=== PATIENT | female | born 1990 | race Caucasian/White ===

== ENCOUNTER 2023-09-21 08:08 | Outpatient (CLI) | payer OTHER, SELFPAY ==
--- OUTSIDE RECORDS SUMMARY | 2023-09-21 08:10 | XMS_ITS | Continuity of Care Document ---
Author Name [facility] Organization [facility] Care Team Providers Care Domain Architect Name Role Phone [facility] Unavailable Unavailable Problems Combined list of problems from Department of Defense and Veterans Affairs facilities. It does not include entries that were removed or entered in error. Problem Status Onset Date Problem Type Date of Resolution Comments Source visit for: contraceptive surveillance Inactive 07/12/[address] [facility] Guidance: Concerns About Unsafe Sexual Practices Inactive 07/12/2012 Condition DoD Need For Vaccination Against Influenza Inactive Condition [facility] visit for: screening exam pulmonary tuberculosis Inactive Condition [facility] visit for: screening exam viral disease Inactive Condition [facility] Test Inactive Condition [facility] visit for: services physical Active Condition [facility] visit for: ears / hearing exam Active Condition [facility] assessment of patient condition work-related Active Condition [facility] Medications Combined list of outpatient medications from Department of aihuishou and Veterans Affairs facilities.Medications provided include 1) outpatient medications from the last 15 months, and 2) patient-reported medications. Medication Details Route Status Patient Instructions Prescription Expires Prescription Number Last Dispense Date Ordering Provider Order Date Source cephalexin 500 mg oral capsule 0 total refill(s ) Ordered No Facilit y Access clindamycin 2% vaginal cream clindamy wil 2% vaginal cream Start Date: 04/29/21 Status: Ordered Ordered No Facilit y Access metroNIDAZO LE 500 mg oral tablet 0 total refill(s ) Ordered No Facilit y Access Allergies, Adverse Reactions, Alerts Combined list of allergies from Department of Defense and Veterans Affairs facilities. It does not include entries that were removed or entered in error. Substance Category Reaction Severity Reaction type Status Date Reported Comments Source No Known Allergies Drug allergy (disorder) active 05/09/2012 [facility] Immunizations Combined list of available immunizations from the Department of Defense and Veterans Affairs facilities. Immunization Series Date Given Administered By Site Reaction Lot Number CVX Code Drug Funeral Director'S Assistant Status Comments Source SARS-COV-2 (COVID-19) vaccine, vector non-replicati ng, recombinant spike protein-Ad26, preservative free, 0.5 mL 1 2021 [id number] Unknown (UNK) comple t ed SARS-COV- 2 (COVID-19 ) vaccine, vector non-repli cating, recombina nt spike protein-A d26, preservat jennifer free, 0.5 mL DoD tetanus-dipht h toxoids (Td) adult/adol 2020 Right Arm [id number] GlaxoSmithKli ne complet ed tetanus-d iphth toxoids (Td) adult/ado l 11/13/20 Given Ambulat ory Pharmac y tetanus and diphtheria toxoids, adsorbed, preservative free, for adult use (2 Lf of tetanus toxoid and 2 Lf of diphtheria toxoid) 1 2020 MARIO MCCORMACK T [id number] [facility] ([facility] complet ed tetanus and diphtheri a toxoids, adsorbed, preservat jennifer free, for adult use (2 Lf of tetanus toxoid and 2 Lf of diphtheri a toxoid) DoD influenza, injectable, quadrivalent- pf 2018 [id number] 150 Seqirus complet ed influenza , injectabl e, quadrival ent-pf 06/23/19 Given Ambulat ory Pharmac y Influenza, injectable, quadrivalent, preservative free 1 2018 [id number] 150 Seqirus (SEQ) complet ed Influenza , injectabl e, quadrival ent, preservat jennifer free DoD influenza, seasonal, injectable-pf 2016 [id number] 140 GlaxoSmithKli ne complet ed influenza , seasonal, injectabl e-pf 05/10/17 Given Ambulat ory Pharmac y Influenza, seasonal, injectable, preservative free 1 2016 [id number] [facility] Influenza , seasonal, injectabl e, preservat jennifer free DoD influenza, seasonal, injectable 2015 [id number] 141 Unknown complet ed influenza , seasonal, injectabl e 06/27/16 Given Ambulat ory Pharmac y Influenza, seasonal, injectable 1 2015 [id number] 141 Unknown (UNK) comple t ed Influenza , seasonal, injectabl e DoD influenza, injectable, quadrivalent- pf 2014 [id number] 150 GlaxoSmithKli ne complet ed influenza , injectabl e, quadrival ent-pf 06/29/15 Given Ambulat ory Pharmac y Influenza, injectable, quadrivalent, preservative free 1 2014 [id number] 150 SmithKline (SKB) complet ed Influenza , injectabl e, quadrival ent, preservat jennifer free DoD measles/mumps /rubella virus vaccine 2014 [id number] 03 Merck & Company Inc complet ed measles/m umps/rube lla virus vaccine 02/18/15 Given Ambulat ory Pharmac y measles, mumps and rubella virus vaccine 2 2014 [id number] 03 WISHCLOUDS (MSD) complet ed measles, mumps and rubella virus vaccine DoD Influenza, injectable, MDCK-pf 2013 [id number] 153 Novartis Pharmaceutica ls complet ed Influenza , injectabl e, MDCK-pf 04/26/14 Given Ambulat ory Pharmac y Influenza, injectable, Madin Cumberland Canine Kidney, preservative free 1 2013 [id number] 153 Novartis Admittortica Kuldat Ha. (NOV) complet ed Influenza , injectabl e, Madin Kassie Canine Kidney, preservat jennifer free DoD Influenza, injectable, MDCK-pf 2012 [id number] 153 CSL Behring complet ed Influenza , injectabl e, MDCK-pf 04/22/13 Given Ambulat ory Pharmac y Influenza, injectable, Madin Cumberland Canine Kidney, preservative free 1 2012 [id number] 153 [employer] [employer] (CS) complet ed Influenza , injectabl e, Madin Cumberland Canine Kidney, preservat jennifer free DoD tuberculin purified protein derivative 2011 [id number] 96 sanofi pasteur complet ed tuberculi n purified protein derivativ e 05/09/12 Given Ambulat ory Pharmac y influenza virus vaccine, live 2011 [id number] 111 [employer] Inc comple t ed influenza virus vaccine, live 05/09/12 Given Ambulat ory Pharmac y influenza virus vaccine, live, attenuated, for intranasal use 1 2011 [id number] 111 MedITopChalks[employer] Inc. (MED) complet ed influenza virus vaccine, live, attenuate d, for intranasa l use DoD hepatitis A-hepatitis B vaccine 2011 UNK 104 Unknown complet ed hepatitis A-hepatit is B vaccine 6/10/12 Given Ambulat ory Pharmac y hepatitis A and hepatitis B vaccine 3 2011 UNK 104 Unknown (UNK) comple t ed hepatitis A and hepatitis B vaccine DoD influenza, seasonal, injectable-pf 2010 [id number] 140 CSL Behring complet ed influenza , seasonal, injectabl e-pf 05/23/11 Given Ambulat ory Pharmac y Influenza, seasonal, injectable, preservative free 1 2010 [id number] 140 CS Kle[employer]ail[employer] Inc. (CSL) complet ed Influenza , seasonal, injectabl e, preservat jennifer free DoD hepatitis A-hepatitis B vaccine 2008 [id number] 0AA 104 GlaxoSmithKli ne complet ed hepatitis A-hepatit is B vaccine 02/01/09 Given Ambulat ory Pharmac y hepatitis A and hepatitis B vaccine 2 2008 [id number] 0AA 104 SmithKline (SKB) complet ed hepatitis A and hepatitis B vaccine DoD tuberculin purified protein derivative 2008 [id number] 96 sanofi pasteur complet ed tuberculi n purified protein derivativ e 12/28/08 Given Ambulat ory Pharmac y tetanus, diphtheria, acellular pertu is 2008 [id number] 115 GlaxoSmithKli ne complet ed tetanus, diphtheri a, acellular pertussis 12/28/08 Given Ambulat ory Pharmac y meningococcal A,C,Y,W-135 (MCV4P) 2008 [id number] 114 sanofi pasteur complet ed meningoco ccal A,C,Y,W-1 35 (MCV4P) 12/28/08 Given Ambulat ory Pharmac y hepatitis A-hepatitis B vaccine 2008 [id number] 0AA 104 GlaxoSmithKli ne complet ed hepatitis A-hepatit is B vaccine 12/28/08 Given Ambulat ory Pharmac y poliovirus vaccine, inactivated 2008 [id number] 10 sanofi pasteur complet ed polioviru s vaccine, inactivat ed 12/28/08 Given Ambulat ory Pharmac y measles/mumps /rubella virus vaccine 2008 [id number] 03 Merck & Company Inc complet ed measles/m umps/rube lla virus vaccine 12/28/08 Given Ambulat ory Pharmac y measles, mumps and rubella virus vaccine 1 2008 [id number] 03 Merck (MSD) complet ed measles, mumps and rubella virus vaccine DoD poliovirus vaccine, inactivated 1 2008 [id number] 10 Sanofi Pasteur (PMC) complet ed polioviru s vaccine, inactivat ed DoD varicella virus vaccine 1 2008 UNK 21 Unknown (UNK) Not Given varicella virus vaccine DoD hepatitis A and hepatitis B vaccine 1 2008 [id number] 0AA 104 SmithKline (SKB) complet ed hepatitis A and hepatitis B vaccine DoD meningococcal polysaccharid e (groups A, C, Y and W-135) diphtheria toxoid conjugate vaccine (MCV4P) 1 2008 [id number] 114 Sanofi Pasteur (PMC) complet ed meningoco ccal polysacch aride (groups A, C, Y and W-135) diphtheri a toxoid conjugate vaccine (MCV4P) DoD tetanus toxoid, reduced diphtheria toxoid, and acellular pertu is vaccine, adsorbed 1 2008 [id number] 115 SmithKline (SKB) complet ed tetanus toxoid, reduced diphtheri a toxoid, and acellular pertussis vaccine, adsorbed DoD Vital Signs Combined list of inpatient and outpatient Vital Signs from Department of Defense and Veterans Affairs, ranging from 12 months to all on record, depending upon the facility. Vital Sign Value Date Comments Source No data available for this section Ambulatory Pharmacy Encounters Combined list of: 1) Encounters from Department of Veterans Affairs facilities going back up to thelast 18 months. 2) Encounters from the Department of Defense facilities going back up to 280 months. Location Location Details Encounter Type Encounter Number Reason For Visit Attending Provider ADM Date DC Date Status Disposition Source [facility](IEP Hearing Conservat ion) OUTPATIENT [id number] DEREK CAMACHO 12/26 Released w/o Limitations [facility](I EP Hearing Conserv ation) [facility](IEP Optometry ) OUTPATIENT [id number] HALEY MURPHY 01/29 Released w/o Limitations [facility](I EP Optomet ry) [facility](TAMMI C IRR/SRP) OUTPATIENT [id number] Notes Entered by: JUAN J CHOI RA 09 May 2012 0839 ------- ------- ------- ------- -- LVL1/OB C ZULEMAEPI Mel 05/09 Released w/o Limitations [facility] IRR/SRP ) [facility] C Gynecolog y) OUTPATIENT [id number] [facility] 001-13 KIN NAVARRETE Eunice 07/12 Released w/o Limitations [facility] Gynecol ogy) [facility] OUTPATIENT [id number]: ST LI MAHER 06 Mar 2019 1453 ------- ------- ------- ------- -- EVELIN LOPEZ 03/06 [facility]ased w/o Limitations [facility] OUTPATIENT [id number] Notes Entered by: CARMEN CHAUDHARI 07 Mar 2019 1525 ------- ------- ------- ------- -- EVELIN LOPEZ 03/07 Released w/o Limitations [facility]) [facility] [place] De[facility]) OUTPATIENT [id number] Notes Entered by: Jameson MEDLEY November 0718 ------- ------- ------- ------- -- MOBKAMRYN YI 11/13 Released w/o Limitations [facility] [place]([facility] Deploym ent Clinic) [facility] [place]([facility] Hearing Program) OUTPATIENT [id number] Notes Entered by: BERTHA KENNEDY 08 Oct 2021 0720 ------- ------- ------- ------- -- CAROLINE TOTH 10/08 Released w/o Limitations [facility] [place](SR [facility] Hearing Program ) [facility] [place]([facility]) OUTPATIENT [id number] Notes Entered by: ANDRE LYN 08 Oct 2021 0718 ------- ------- ------- ------- -- EULA ESPITIA 10/08 Released w/o Limitations [facility] [place]([facility] P Deploym ent Clinic) [facility](SR[facility] Deploymen t Clinic) OUTPATIENT [id number] DILMAMARIKA KUMARPE 10/09 Released w/o Limitations [facility](SR P Deploym ent Clinic) [place], [place]([facility] [address] [place] [address]) TELE CONSULT [id number] Notes Entered by: PAT BERRY 29 Oct 2021 1039 ------- ------- ------- ------- -- [facility] Poly-Ph armacy 21.12 Cohort #5 JADADANYEL Homer 10/29 [place], [place]([address]) Procedures Combined list of: 1) Procedures from Department of Veterans Affairs facilities going back up to thelast 18 months, not all VA non-surgical procedures are included; 2) All procedures from the Department of Defense facilities. Procedure Procedure Type Code Date Perfomer Comments Soureunice e No data available for this section Ambulato ry Pharmacy Skin Test Anergy Tuberculin Intradermal Skin Test Anergy Tuberculin Intradermal [address] [facility] Immunization Administration By Injection, Each Additional Vaccine [facility] Influenza Virus Vaccine Intranasal Live Attenuated [facility] Immunization Administration By Injection, One Vaccine Immunization Administration By Injection, One Vaccine 00698 [facility] Visual Function Screening Visual Function Screening [address] [facility] Physician Supervised Group Educational Services DEREK CAMACHO Special Physician Services Analysis Of Computerized Data DEREK CAMACHO [facility]ometry [facility] Testing Audiometry Group Testing 79576 DEREK CAMACHO Ear mold/insert, not disposable, any type JANICEDEREK KOLB N [facility] Ear Protector Attenuation Measurements Ear Protector Attenuation Measurements [address] [facility] Threshold Audiogram (Pure Tone) Threshold Audiogram (Pure Tone) [address] [facility] Td Vaccine Preservative Free, Adsorbed Td Vaccine Preservative Free, Adsorbed 58625 KAMRYN ARANGO Td (adult), adsorbed; Series #: 1; 0.5 mL; IM; Right Arm; Mfg: [employer]; Lot: [id number]; VIS given (Jae: 11/08/2019). [facility] Immunization Administration By Injection, One Vaccine Immunization Administration By Injection, One Vaccine [address] [facility] Preventive Medicine Administration Of Health Risk Questionnaire Patient-Focused Preventive Medicine Administration Of Health Risk Questionnaire Patient-Focused [address] [facility] Psychometric Emotional / Behavioral A e ment Psychometric Emotional / Behavioral Assessment [address] [facility] Threshold Audiogram (Pure Tone) Automated Threshold Audiogram (Pure Tone) Automated [id number] CAROLINE SPARKS [facility] Nutrition cla es, non-physician provider, per se EVELIN Sheets [facility] ADMINISTRATION OF PATIENT-FOCUSED HEALTH RISK ASSESSMENT INSTRUMENT (EG, HEALTH HAZARD APPRAISAL) WITH SCORING AND DOCUMENTATION, PER STANDARDIZED INSTRUMENT [facility] PURE TONE AUDIOMETRY (THRESHOLD), AUTOMATED; AIR ONLY [facility] BRIEF EMOTIONAL/BEHAVIO RAL ASSESSMENT (EG, DEPRESSION INVENTORY, ATTENTION-DEFICIT /HYPERACTIVITY DISORDER [ADHD] SCALE), WITH SCORING AND DOCUMENTATION, PER STANDARDIZED INSTRUMENT [facility] SCREENING TEST OF VISUAL ACUITY, QUANTITATIVE, BILATERAL 021 [facility] NUTRITION CLASSES, NON-PHYSICIAN PROVIDER, PER SESSION 019 [facility] SKIN TEST; TUBERCULOSIS, INTRADERMAL 012 [facility] VIS FUNCT SCREEN,AUTOMAT/SE AL-AUTOMAT BILAT QUANT DETERM VISUAL ACUITY,OCULAR ALIGN,COLOR VISION,PSEUDOISOC HROMAT PLATES,& FIELD VIS (MAY INC ALL/SOME SCRN DETERM FOR CONTRAST SENSITIV,VIS UND GLARE) [facility] AUDIOMETRIC TESTING OF GROUPS [facility] Social History Combined list of available smoking, tobacco, and other social history from Department of Defense and Veterans Affairs facilities. Social History Type Response Date Comment Sour e This section is an empty social history section. DoD Assessment and Plan Combined list of future care activities from Department of Defense and Veterans Affairs facilities (e.g., assessment and plan notes, appointments, orders, and referrals). Additional future care activities may be listed in the Plan of Care section. Result Assessment and Plan Date Source Assessment and Plan No data available for this section 09/21/2023 Ambulatory Pharmacy Functional Status Combined list of recent functional and cognitive assessments recorded at Department of Defense and Veterans Affairs ([place] Functional Pratt Measurement (FIM) Scale: 1 = Total Assistance (Subject = 0% +), 2 = Maximal Assistance (Subject = 25% +), 3 = Moderate Assistance (Subject = 50% +), 4 = Minimal Assistance (Subject = 75% +), 5 = Supervision, 6 = Modified Pratt (Device), 7 = Complete Pratt (Timely, Safely). Assessment Date/Time Source Assessment Type Assessment Skill Assessment Score Assessment Details No data available for this section
--- NOTE | 2023-09-21 08:15 | US_ITS ---
Patient: ONOFRE NEWBERRY Facility:?[facility] Patient ID:?[id number] Site Patient ID:?[id number]. Site :?1990 Study:?US-OB Pelvis TV dating/viability-09/21/2023 9:43:07 AM Ordering Physician:JENNA Final Report: INDICATION: First trimester scan, establish dates. COMPARISON: None. TECHNIQUE: Real-time garcia-scale imaging of the pelvis was performed. FINDINGS: Sonographic imaging demonstrates a single living intrauterine gestation. The embryo demonstrates a regular cardiac rate measuring 165 beats per minute. The embryo`s crown-rump length measurement of 1.8 cm corresponds to a gestational age of 8 weeks 2 days with a sonographic due date of 04/30/2024. There is a normal-appearing yolk sac. There are no gross abnormalities noted within the embryo at this early state of development. The gestational sac has a normal appearance. There is a right fundal perigestational hemorrhage measuring 3.2 x 1.1 x 0.7 cm and an inferior subchorionic hemorrhage measuring 2.5 x 1.0 x 2.1 cm. The amount of fluid within the sac appears appropriate for gestational age. The cervix is closed. The myometrium appears normal. The ovaries are of normal size. Corpus luteal cyst right ovary. There are no suspicious fluid collections noted in the cul-de-sac. IMPRESSION: Single living intrauterine with sonographic gestational age 8 weeks 2 days and sonographic due date 04/30/2024. There are 2 subchorionic hemorrhages measuring 3.2 x 1.1 x 0.7 cm and 2.5 x 1.0 x 2.1 cm. Dictated by Primo Olivier MD @ 09/23/2023 1:52:29 PM Signed by:?Primo Olivier MD @09/23/2023 1:52:29 PM (Electronic Signature)
== END 2023-09-21 08:09 | disposition home or self-care (01) ==
LOC: US 08:08
PROVIDERS: Visit Provider Advanced Practice Midwife
DX: Z34.91 Encounter for supervision of normal pregnancy, unspecified, first trimester (principal); O20.9 Hemorrhage in early pregnancy, unspecified; Z3A.08 8 weeks gestation of pregnancy
CPT/HCPCS: 76817; 86703; 86706; 86803; 86850; 86900; 86901; 87086; 87340; 87491; 87591

== ENCOUNTER 2023-09-21 09:21 | Outpatient (CLI) | payer OTHER, SELFPAY ==
--- OUTSIDE RECORDS SUMMARY | 2023-09-21 09:25 | XMS_ITS | Continuity of Care Document ---
Author Name [facility] Organization [facility] Care Team Providers Care Bid Clerk Name Role Phone [facility] Unavailable Unavailable Problems Combined list of problems from Department of Defense and Veterans Affairs facilities. It does not include entries that were removed or entered in error. Problem Status Onset Date Problem Type Date of Resolution Comments Source visit for: contraceptive surveillance Inactive 07/12/2012 Condition [facility] Guidance: Concerns About Unsafe Sexual Practices Inactive 07/12/2012 Condition DoD Need For Vaccination Against Influenza Inactive Condition [facility] visit for: screening exam pulmonary tuberculosis Inactive Condition [facility] visit for: screening exam viral disease Inactive Condition [facility] Test Inactive Condition [facility] visit for: services physical Active Condition [facility] visit for: ears / hearing exam Active Condition [facility] assessment of patient condition work-related Active Condition [facility] Medications Combined list of outpatient medications from Department of [employer] and Veterans Affairs facilities.Medications provided include 1) [...] Site Reaction Lot Number CVX Code Drug Painter Aircraft Status Comments Source SARS-COV-2 (COVID-19) vaccine, vector non-replicati ng, recombinant spike protein-Ad26, preservative free, 0.5 mL 1 2021 [id number] Unknown (UNK) comple t ed SARS-COV- 2 (COVID-19 ) vaccine, vector non-repli cating, recombina nt spike protein-A d26, preservat jennifer free, 0.5 mL DoD tetanus-dipht h toxoids (Td) adult/adol 2020 Right Arm [id number] GlaxoSmithKli ne complet ed tetanus-d iphth toxoids (Td) adult/ado l 11/13/20 Given Ambulat ory Pharmac y tetanus and diphtheria toxoids, adsorbed, preservative free, for adult use (2 Lf of tetanus toxoid and 2 Lf of diphtheria toxoid) 1 2020 MARIO MCCORMACK T [id number] [facility] ([facility]) complet ed tetanus and diphtheri a toxoids, adsorbed, preservat jennifer free, for adult use (2 Lf of tetanus toxoid and 2 Lf of diphtheri a toxoid) DoD influenza, injectable, quadrivalent- pf 2018 [id number] 150 Seqirus complet ed influenza , injectabl e, quadrival ent-pf 06/23/19 Given Ambulat ory Pharmac y Influenza, injectable, quadrivalent, preservative free 1 2018 [id number] 150 Seqirus (SEQ) complet ed Influenza , injectabl e, quadrival ent, preservat jennifer free DoD influenza, seasonal, injectable-pf 2016 [id number] 140 GlaxoSmithKli ne complet ed influenza , seasonal, injectabl e-pf 05/10/17 Given Ambulat ory Pharmac y Influenza, seasonal, injectable, preservative free 1 2016 [id number] 140 [facility] Influenza , seasonal, injectabl e, preservat jennifer free DoD influenza, seasonal, injectable 2015 [id number] 141 Unknown complet ed influenza , seasonal, injectabl e 06/27/16 Given Ambulat ory Pharmac y Influenza, seasonal, injectable 1 2015 [id number] 141 Unknown (UNK) comple t ed Influenza , seasonal, injectabl e DoD influenza, injectable, quadrivalent- pf 2014 [id number] 150 GlaxoSmithKli ne complet ed influenza , injectabl e, quadrival ent-pf 06/29/15 Given Ambulat ory Pharmac y Influenza, injectable, quadrivalent, preservative free 1 2014 [id number] 150 SmithKline (SKB) complet ed Influenza , injectabl e, quadrival ent, preservat jennifer free DoD measles/mumps /rubella virus vaccine 2014 [id number] 03 Merck & Company Inc complet ed measles/m umps/rube lla virus vaccine 02/18/15 Given Ambulat ory Pharmac y measles, mumps and rubella virus vaccine 2 2014 [id number] 03 Innography (MSD) complet ed measles, mumps and rubella virus vaccine DoD Influenza, injectable, MDCK-pf 2013 [id number] 153 Novartis Pharmaceutica ls complet ed Influenza , injectabl e, MDCK-pf 04/26/14 Given Ambulat ory Pharmac y Influenza, injectable, Madin [place] Canine Kidney, preservative free 1 2013 [id number] 153 Novartis Futurestream Networkstica Miraculins Ha. (NOV) complet ed Influenza , injectabl e, Madin Kassie Canine Kidney, preservat jennifer free DoD Influenza, injectable, MDCK-pf 2012 [id number] 153 CSL Behring complet ed Influenza , injectabl e, MDCK-pf 04/22/13 Given Ambulat ory Pharmac y Influenza, injectable, Madin [place] Canine Kidney, preservative free 1 2012 [id number] 153 Nanosphere Denwa CommunicationsapE[employer]el Learn, Inc. (CS) complet ed Influenza , injectabl e, Madin [place] Canine Kidney, preservat jennifer free DoD tuberculin purified protein derivative 2011 [id number] 96 sanofi pasteur complet ed tuberculi n purified protein derivativ e 05/09/12 Given Ambulat ory Pharmac y influenza virus vaccine, live 2011 [id number] 111 StoryToysune Inc comple t ed influenza virus vaccine, live 05/09/12 Given Ambulat ory Pharmac y influenza virus vaccine, live, attenuated, for intranasal use 1 2011 [id number] 111 MedIDicerna Pharmaceuticals, Inc. (MED) complet ed influenza virus vaccine, live, attenuate d, for intranasa l use DoD hepatitis A-hepatitis B vaccine 2011 UNK 104 Unknown complet ed hepatitis A-hepatit is B vaccine 6/10/12 Given Ambulat ory Pharmac y hepatitis A and hepatitis B vaccine 3 2011 UNK 104 Unknown (UNK) comple t ed hepatitis A and hepatitis B vaccine DoD influenza, seasonal, injectable-pf 2010 [id number] 140 CSL Behring complet ed influenza , seasonal, injectabl e-pf 05/23/11 Given Ambulat ory Pharmac y Influenza, seasonal, injectable, preservative free 1 2010 [id number] 140 CS OneCard, Inc. (CSL) complet ed Influenza , seasonal, injectabl e, preservat jennifer free DoD hepatitis A-hepatitis B vaccine 2008 [id number] 104 GlaxoSmithKli ne complet ed hepatitis A-hepatit is B vaccine 02/01/09 Given Ambulat ory Pharmac y hepatitis A and hepatitis B vaccine 2 2008 [id number] 104 SmithKline (SKB) complet ed hepatitis A and hepatitis B vaccine DoD tuberculin purified protein derivative 2008 [id number] 96 sanofi pasteur complet ed tuberculi n purified protein derivativ e 12/28/08 Given Ambulat ory Pharmac y tetanus, diphtheria, acellular pertu is 2008 [id number] 115 GlaxoSmithKli ne complet ed tetanus, diphtheri a, acellular pertussis 12/28/08 Given Ambulat ory Pharmac y meningococcal A,C,Y,W-135 (MCV4P) 2008 [id number] 114 sanofi pasteur complet ed meningoco ccal [...] diphtheria toxoid conjugate vaccine (MCV4P) 1 2008 [id number] 114 Sanofi Pasteur (PMC) complet ed meningoco ccal polysacch aride (groups A, C, Y and W-135) diphtheri a toxoid conjugate vaccine (MCV4P) DoD tetanus toxoid, reduced diphtheria toxoid, and acellular pertu is vaccine, adsorbed 1 2008 [id number] 115 SmithKline (SKB) complet ed tetanus [...] [employer](IEP Hearing Conservat ion) OUTPATIENT [id number] DEREK CAMACHO 12/26 Released w/o Limitations [employer](I EP Hearing Conserv ation) [employer](IEP Optometry ) OUTPATIENT [id number] HALEY MURPHY 01/29 Released w/o Limitations [employer](I EP Optomet ry) [employer](TAMMI C IRR/SRP) OUTPATIENT [id number] Notes Entered by: JUAN J CHOI RA 09 May 2012 0839 ------- ------- ------- ------- -- LVL1/OB C ZULEMAEPI Mel 05/09 Released w/o Limitations [employer]([facility] IRR/SRP ) [employer]([facility] C Gynecolog y) OUTPATIENT [id number] [facility] [id number] KIN NAVARRETE Kym 07/12 Released w/o Limitations [employer]([facility] Gynecol ogy) [employer]([facility]) OUTPATIENT [id number]: [address] LI MAHER 06 Mar 2019 1453 ------- ------- ------- ------- -- EVELIN LOPEZ 03/06 Released w/o Limitations [facility]) OUTPATIENT [id number] Notes Entered by: CARMEN CHAUDHARI 07 Mar 2019 1525 ------- ------- ------- ------- -- EVELIN LOPEZ 03/07 Released w/o Limitations [facility](A y Wellnes s Clinic) [facility] Deploy[facility] Clinic) OUTPATIENT [id number] Notes Entered by: Jameson MEDLEY November 0718 ------- ------- ------- ------- -- MOBKAMRNY YI 11/13 Released w/o Limitations [facility](SR P Deploym ent Clinic) [facility](SR[facility] Hearing Program) OUTPATIENT [id number] Notes Entered by: BERTHA KENNEDY 08 Oct 2021 0720 ------- ------- ------- ------- -- CAROLINE TOTH 10/08 Released w/o Limitations [facility](SR P Hearing Program ) [facility]) OUTPATIENT [id number] Notes Entered by: ANDRE LYN 08 Oct 2021 0718 ------- ------- ------- ------- -- EULA ESPITIA 10/08 Released w/o Limitations [facility](SR P Deploym ent Clinic) [facility](SRP Deploymen t Clinic) OUTPATIENT [id number] DILMAEstrellita SNYDERMINEMARIKA BOWDENPE 10/09 Released w/o Limitations [facility](SR P Deploym ent Clinic) [place]([address]) TELE CONSULT [id number] Notes Entered by: PAT BERRY 29 Oct 2021 1039 ------- ------- ------- ------- -- [facility] Poly-Ph armacy 21.12 Cohort #5 JADAFREDERICKDarline Coronel 10/29 [place], [place]([address]) Procedures Combined list of: 1) Procedures from Department of Veterans Affairs facilities going back up to thelast 18 months, not all VA non-surgical procedures are included; 2) All procedures from the Department of Defense facilities. Procedure Procedure Type Code Date Perfomer Comments Sour e Skin Test Anergy Tuberculin Intradermal Skin Test Anergy Tuberculin Intradermal 52874 [facility] Immunization Administration By Injection, Each Additional Vaccine [facility] Influenza Virus Vaccine Intranasal Live Attenuated [facility] Immunization Administration By Injection, One Vaccine Immunization Administration By Injection, One Vaccine 22798 [facility] Visual Function Screening Visual Function Screening 12721 HALEY MURPHY [facility] Physician Supervised Group Educational Services DEREK CAMACHO [facility] Special Physician Services Analysis Of Computerized Data DEREK CAMACHO Audiometry Group Testing Audiometry Group Testing 32598 DEREK CAMACHO Ear mold/insert, not disposable, any type JANICEDEREK [facility] Ear Protector Attenuation Measurements Ear Protector Attenuation Measurements 80973 DOE HILLDEREK [facility] Threshold Audiogram (Pure Tone) Threshold Audiogram (Pure Tone) 09849 DOE HILLDEREK [facility] Td Vaccine Preservative Free, Adsorbed Td Vaccine Preservative Free, Adsorbed 45202 KAMRYN ARANGO Td (adult), adsorbed; Series #: 1; 0.5 mL; IM; Right Arm; Mfg: [employer]; Lot: [id number]; VIS given (Jae: 11/08/2019). [facility] Immunization Administration By Injection, One Vaccine Immunization Administration By Injection, One Vaccine 23718 KAMRYN ARANGO [facility] Preventive Medicine Administration Of Health Risk Questionnaire Patient-Focused Preventive Medicine Administration Of Health Risk Questionnaire Patient-Focused 82160 MYLA HOLT [facility] Psychometric Emotional / Behavioral A e ment Psychometric Emotional / Behavioral Assessment 80649 MYLA HOLT [facility] Threshold Audiogram (Pure Tone) Automated Threshold Audiogram (Pure Tone) Automated 0208T CAROLINE SPARKS [facility] Nutrition cla es, non-physician provider, per se EVELIN Sheets [facility] ADMINISTRATION OF PATIENT-FOCUSED HEALTH RISK ASSESSMENT INSTRUMENT (EG, HEALTH HAZARD APPRAISAL) WITH SCORING AND DOCUMENTATION, PER STANDARDIZED INSTRUMENT [facility] PURE TONE AUDIOMETRY (THRESHOLD), AUTOMATED; AIR ONLY [facility] BRIEF EMOTIONAL/BEHAVIO RAL ASSESSMENT (EG, DEPRESSION INVENTORY, ATTENTION-DEFICIT /HYPERACTIVITY DISORDER [ADHD] SCALE), WITH SCORING AND DOCUMENTATION, PER STANDARDIZED INSTRUMENT [facility] SCREENING TEST OF VISUAL ACUITY, QUANTITATIVE, BILATERAL 021 [facility] NUTRITION CLASSES, NON-PHYSICIAN PROVIDER, PER SESSION 019 [facility] SKIN TEST; TUBERCULOSIS, INTRADERMAL 012 [facility] VIS FUNCT SCREEN,AUTOMAT/SE MS-AUTOMAT BILAT QUANT DETERM VISUAL ACUITY,OCULAR ALIGN,COLOR VISION,PSEUDOISOC HROMAT PLATES,& FIELD VIS (MAY INC ALL/SOME SCRN DETERM FOR CONTRAST SENSITIV,VIS UND GLARE) 009 [facility] AUDIOMETRIC TESTING OF GROUPS [facility] No data available for this section Ambulato ry Pharmacy Social History Combined list of available smoking, [...] at Department of Defense and Veterans Affairs ([place]VA Functional [place] Measurement (FIM) Scale: 1 = Total Assistance (Subject = 0% +), 2 = Maximal Assistance (Subject = 25% +), 3 = Moderate Assistance (Subject = 50% +), 4 = Minimal Assistance (Subject = 75% +), 5 = Supervision, 6 = Modified [place] (Device), 7 = Complete [place] (Timely, Safely). Assessment Date/Time Source Assessment Type Assessment Skill Assessment Score Assessment Details No data available for this section
--- OUTSIDE RECORDS SUMMARY | 2023-09-21 09:25 | XMS_ITS | Referral Summary ---
Author Name Unknown Organization [facility] Address [address] [place] [address] Care Team Providers Care Conservation Specialist Name Role Phone Elisabet Vee MD Primary Care Provider [phone] Allergies No known active allergies Medications Medication Sig Dispensed Refills Start Date End Date Status Xmajntwn-Nfi-Ym-FA ( VITAMINS PO) 0 Active ibuprofen (ADVIL/MOTRIN) 800 MG tabletIndications:S VD (spontaneous vaginal delivery) Take 1 tablet (800 mg) by mouth every 6 hours as needed for other (cramping) 40 tablet 0 06/29/2018 Active Additional Information Patient not taking.Reported on 05/19/2019 senna-docusate (SENOKOT-S;PERICOLA CE) 8.6-50 MG per tabletIndications:S VD (spontaneous vaginal delivery) Take 1 tablet by mouth 2 times daily as needed for constipation 15 tablet 1 06/29/2018 Active Additional Information Patient not taking.Reported on 05/19/2019 pantoprazole (PROTONIX) 40 MG EC tabletIndications:E pigastric pain Take 1 tablet (40 mg) by mouth daily 30 tablet 1 05/19/2019 Active fluticasone (FLONASE) 50 MCG/ACT nasal sprayIndications:Si nusitis, unspecified chronicity, unspecified location [place] 2 sprays into both nostrils daily 16 g 3 05/23/2019 Active guaiFENesin-codeine (ROBITUSSIN AC) 100-10 MG/5ML solutionIndications :Cough Take 5-10 mLs by mouth every 4 hours as needed for cough 240 mL 0 05/23/2019 Active Active Problems Problem Noted Date Diagnosed Date Supervision of normal 06/28/2018 Amniotic fluid leaking 06/28/2018 (normal spontaneous vaginal delivery) 06/28 care and examination of lactating mot her 06/28/2018 Indication for care in labor or delivery 018 (spontaneous vaginal delivery) 05/08/2017 Resolved Problems Problem Noted Date Diagnosed Date Resolved Date Indication for care in labor or delivery 05/08/2017 05/10/2017 Immunizations Name Administration Dates Next Due Influenza Vaccine >6 months,quad, PF 05/10/2017 Social History Tobacco Use Types Packs/Day Years Used Date Smoking Tobacco: Never Smokeless Tobacco: Never Alcohol Use Standard Drinks/Week Comments No 0 (1 standard drink = 0.6 oz pur e alcohol) Sex and Gender Information Value Date Recorded Sex Assigned at Not on file Gender Identity Not on file Sexual Orientation Not on file Last Filed Vital Signs Vital Sign Reading Time Taken Comments Blood Pressure 118/70 05/23/2019 9:35 AM CDT Pulse 64 05/23/2019 9:35 AM CDT Temperature 36.1 ??C (96.9 ??F) 05/23/2019 9:35 AM CD T Respiratory Rate 16 06/29/2018 8:21 AM 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
--- OUTSIDE RECORDS SUMMARY | 2023-09-21 09:25 | XMS_ITS | Clinical Summary ---
Author Name Unknown Organization [facility] Address [address] [place] [address] Care Team Providers Care Office Rn Name Role Phone Trupti Hauser MD Primary Care Provider Source Comments You are receiving this document as you are listed as the primary care provider,follow-up provider, or the patient has been referred to you for consultation.This is in compliance with the Medicare and[facility] EHR Incentive Program,which states Providers who transition their patient to another setting of careor provider of care or refers their patient to another provider of care shouldprovide summary care record for each transition of care or referral. [facility] Allergies No known active allergies Medications Medication Sig Dispensed Refills Start Date End Date Status Multiple Vitamins-Iron (MULTIVITAMIN/IRON OR) Take 1 Tablet by mouth daily. 0 Active Active Problems Problem Noted Date Diagnosed Date Anxiety 02/24/2022 Atypical squamous cells of u ndetermined significance on cytologic smear of cervix (ASC-US) 06/20/2021 Overview: [facility] Review: History: 09/2016: NILM 05/2021: ASCUS, HPV- Plan, per ASCCP guidelines: Repeat co-test in 3 years (05/2024) Resolved Problems Problem Noted Date Diagnosed Date Resolved Date Hemorrhoids during in third trimester 06/09/2018 08/11/2018 Sciatica of right side 03/04/201802/24 Short interval between pregn ancies complicating , antepartum 11/16/201708/11 Unsure of LMP (last menstrua l period) as reason for ultrasound scan 11/16/2017 03/04/2018 Supervision of other normal , antepartum 11/16/2017 08/11/2018 care following vaginal delivery 06/22/2017 11/16/2017 Encounter for supervision of normal first in third trimester 03/15/2017 06/22/2017 Cardiac dysrhythmia 04/06/2007 09/14/19 17 Overview: Bradycardia Constipation 04/06/2007 09/14/2016 Overview: Constipation NOS Bulimia nervosa 04/04/2007 09/14/2016 Encounters Date Type Department Care Team Description 07/23/2023 2:15 PM PALLETIZER Office Visit [facility] Obstetrics/Gynecolog [address] [place] [address] Sangeeta Moreland, DO Encounter for removal of intrauterine contraceptive device (Primary Dx) from Last 3 Months Immunizations Name Administration Dates Next Due DTaP 03/24/1995, 2,04/19/1990, 990,1989 Flu Vac (3+ yrs) 07/26/2008 HepB Ped/Adol (0-18 yrs) 04/13/2002,03/31/2001,0 01/14/2001 Hib (PRP-D) 02/07/1991,10/14/1990,07/19/1990 Influenza IIV4 (Quadrivalent ) 0.5mL (12156) 05/27/2021,04/13/2018,05/10/2017, 016 Luis COVID-19 Vaccine 08/21/2021 MCV4 (Menactra) 03/29/2008 MMR 04/13/2002,02/07/1991 OPV, Trivalent (Orimune or tOPV) 992,04/19/1990,02/15/1990, 990 Td 06/22/2003 Tdap 04/13/2018,02/05/2017,01/07/2012 Family History Medical History Relation Name Comments Osteoarthritis Father Hypertension Mother Osteoarthritis Brother Cancer, Breast Paternal Aunt 1 Cancer, Breast Paternal Aunt 2 Cancer, Prostate Paternal Grandfather Defects Negative Family History Cancer, Colon Negative Family History Cancer, Ovary Negative Family History Relation Name Status Comments Father Alive Mother Alive Brother Alive Maternal Grandfather Maternal Grandmother Paternal Aunt 1 Alive Paternal Aunt 2 Alive Paternal Grandfather Paternal Grandmother Alive Social History Tobacco Use Types Packs/Day Years Used Date Smoking Tobacco: Never Passive Smoke Exposure: Never Smokeless Tobacco: Never Tobacco Cessation:Counseling Given: Not Answered Alcohol Use Standard Drinks/Week Comments Yes 2 (1 standard drink = 0.6 oz pur e alcohol) PHQ-2 Answer Date Recorded PHQ-2 Score 0 02/24/2022 Depression Answer Date Recor ded Last EPDS Total Score 1 02/24/2020 Last EPDS Self Harm Result 0-->never 02/23 Sex and Gender Information Value Date Recorded Sex Assigned at Female 11/24/2022 10:04 AM CDT Gender Identity Female 11/24/2022 10:04 AM CDT Sexual Orientation Not on file Last Filed Vital Signs Vital Sign Reading Time Taken Comments Blood Pressure 126/82 07/23/2023 2:16 PM PALLETIZER Pulse 66 07/23/2023 2:16 PM PALLETIZER Temperature 37.1 ??C (98.7 ??F) 07/16/2021 3:08 PM CS T Respiratory Rate 16 03/24/2021 5:24 PM CDT Oxygen Saturation 99% 07/16/2021 3:08 PM PALLETIZER Inhaled Oxygen Concentration - - Weight 65.8 kg (145 lb) 07/23/2023 2:16 PM PALLETIZER Height 172.7 cm (5' 8) 02/24/2022 3:15 PM CDT Body Mass Index 22.05 02/24/2022 3:15 PM CDT Plan of Treatment Health Maintenance Due Date Last Done Comments COVID-19 Vaccine ( season) 2023 08/21/2021 Influenza (#1) 2023 05/27/2021, 12/2017, 05/10/2017, Additional history exists Adult Preventive Visit 02/25/2024 02/24/2022 Cervical Cancer Screening 06/05/2024 06/05/2021, DTaP/Tdap/Td (9 - Tdap) 04/13/2028 04/13/20 18, 02/05/2017, 01/07/2012, Additional history exists Zoster/Shingles (1 of 2) 10/28/2039 Hib Completed 02/07/1991, 03/1991, 07/19/1990 IPV (Polio) Completed 10/31/1991, 04/09, 02/15/1990, Additional history exists HepB Completed 04/13/2002, 03/10, 01/14/2001 MCV4 Completed 03/29/2008 HIV Screening (Preventive Services) Completed 10/06/2016 Hep C Screening (Preventive Services) Completed 02/24/2022 HPV Vaccine Aged Out No longer eligi ble based on patient's age to complete this topic HepA Aged Out No longer eligi ble based on patient's age to complete this topic Pneumococcal Aged Out No longer eligi ble based on patient's age to complete this topic Care Teams Office Rn Relationship Specialty [place] [address] [address] [address] PCP - General Family Practice 08/31/16
--- OUTSIDE RECORDS SUMMARY | 2023-09-21 09:25 | XMS_ITS | Encounter Summary ---
Author Name Unknown Organization [facility] Address [address] [place] [address] Care Team Providers Care Shear Grinder Operator Name Role Phone Trupti Hauser MD Primary Care Provider Reason for Visit * Reason Onset Date Comments SINUS PAIN/PRESSURE No Show 10/01/2022 Encounter Details Date Type Department Care Team Description 10/01/2022 8:20 AM [facility]AMP [facility]TER Telemedicine Virtual Urgent Care [address] [place] [id number] Myra Hutchison PA-C [address] [place] [address] Encounters for administrative purposes (Primary Dx) Social History Tobacco Use Types Packs/Day Years Used Date Smoking Tobacco: Never Passive Smoke Exposure: Never Smokeless Tobacco: Never Alcohol Use Standard Drinks/Week Comments Yes 2 [...] AM CDT Sexual Orientation Not on file documented as of this encounter Progress Notes * Vicky Ashley, WHALE FISHERMAN, DNP - 10/01/2022 8:20 AM CST Chief Complaint Patient presents with SINUS PAIN/PRESSURE No Show Attempted to reach patient via Invite to Video at 08:29 Attempted to reach patient via SMS text to Video at 08:30 Attempted to reach patient via Phone at 08:30 and 09:04 AM No answer. Voicemail reached with same number as scheduled. Provider left message: [facility] for the virtual urgent care appointment that was scheduled this afternoon. Im haider we were not able to connect. If you still need to be seen please reschedule at another time or you can also be seen at any one of our UrgentCare walk in centers until 8:00 PM this evening. Patient was unable to be reached to complete their Video/phone visit. Vicky Ashley APRN, DNP 10/01/2022, 9:05 AM Patient was called/texted 3+ times and was unable to be reached to complete their video/phone visit. WETTER documented in this encounter Plan of Treatment Not on file documented as of this encounter Visit Diagnoses Diagnosis Encounters for administrative purposes- Primary Encounters for unspecified administrative purpose documented in this encounter Care Teams Shear Grinder Operator Relationship Specialty [place] [address] [address] PCP - General Family Practice 08/31/16 documented as of this encounter
--- OUTSIDE RECORDS SUMMARY | 2023-09-21 09:25 | XMS_ITS | Encounter Summary ---
Author Name Unknown Organization [facility] Address [address], [place] [address] Care Team Providers Care Potato Chip Sacking Machine Operator Name Role Phone Trupti Hauser MD Primary Care Provider Reason for Visit * Reason Comments IUD Removal Encounter Details Date Type Department Care Team Description 07/23/2023 2:15 PM STAGE ELECTRICIAN Office Visit [facility] Obstetrics/Gynecolog y [address] [facility]. [place], [place] [address] Sangeeta Moreland, DO [address] [facility] [address] [place], [place] [id number] Encounter for removal of intrauterine contraceptive device (Primary Dx) Social History Tobacco Use Types [...] on file documented as of this encounter Last Filed Vital Signs Vital Sign Reading Time Taken Comments Blood Pressure 126/82 07/23/2023 2:16 PM STAGE ELECTRICIAN Pulse 66 07/23/2023 2:16 PM STAGE ELECTRICIAN Temperature - - Respiratory Rate - - Oxygen Saturation - - Inhaled Oxygen Concentration - - Weight 65.8 kg (145 lb) 07/23/2023 2:16 PM STAGE ELECTRICIAN Height - - Body Mass Index 22.05 02/24/2022 3:15 PM CDT documented in this encounter Progress Notes * Sangeeta Moreland DO - 07/23/2023 2:15 PM CST Chief complaint: IUD removal HPI: 32 y.o. female presents for IUD removal. She would like removed because desires . Theprocedure was explained and consent was obtained. OBJECTIVE BP 126/82 (BP Location: Right Arm, BP Cuff Size: Regular) Pulse 66 Wt 145 lb (65.8 kg) BMI 22.05 kg/m?? General: no apparent distress : external genitalia, urethral meatus, and perineum appear normal. Speculum was placed easily andthe IUD strings are easily visualized. The IUD strings were grasped with ring forceps and IUD was easily removed. The IUD was shown to the patient prior to being discarded. The speculum was removed. The patient tolerated the procedure well. Assessment: 1. 32 y.o. female here for IUD removal Plan: IUD was removed as described above. Follow up with positive test. E ELECTRICIAN documented in this encounter Plan of Treatment Not on file documented as of this encounter Visit Diagnoses Diagnosis Encounter for removal of intrauterine contraceptive device- Primary documented in this encounter Care Teams Potato Chip Sacking Machine Operator Relationship Specialty [place] [address] [address] PCP - General Family Practice 08/31/16 documented as of this encounter
--- OUTSIDE RECORDS SUMMARY | 2023-09-21 09:25 | XMS_ITS | Clinical Summary ---
Author Name Unknown Organization [facility] Address [address] [facility] [place] [address] Care Team Providers Care Financial Service Representative Name Role Phone Elisabet Vee MD Primary Care Provider [phone] Allergies No known active allergies Medications Medication Sig Dispensed Refills Start Date End Date Status Iporurgb-Odc-Zx-FA ( VITAMINS PO) 0 Active ibuprofen (ADVIL/MOTRIN) [...] nasal sprayIndications:Si nusitis, unspecified chronicity, unspecified location [place] 2 sprays into both nostrils daily 16 [...] Due Influenza Vaccine >6 months,quad, PF 05/10/2017 Family History Medical History Relation Comments Breast Cancer Other Relation Status Comments Other Alive Social History Tobacco Use Types Packs/Day [...] T Respiratory Rate 16 06/29/2018 8:21 AM 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
[2023-09-21 16:27] LABS: Chlamydia DNA Amplified* Not Detected (No Detected); GC DNA Amplified* Not Detected (No Detected)
== END 2023-09-21 09:22 | disposition home or self-care (01) ==
PROVIDERS: PCP Advanced Practice Midwife; Visit Provider Advanced Practice Midwife
DX: Z34.81 Encounter for supervision of other normal pregnancy, first trimester (principal)
CPT/HCPCS: 86592; 86703; 86704; 86706; 86762; 86787; 86803; 86850; 86900; 86901; 87086; 87340; 87491; 87591

== ENCOUNTER 2023-12-17 07:52 | Outpatient (CLI) | payer OTHER, SELFPAY ==
--- OUTSIDE RECORDS SUMMARY | 2023-12-17 07:54 | XMS_ITS | Referral Summary ---
Author Name Unknown Organization [facility] Address [address] [facility] [place] [address] Care Team Providers Care Visual Effects Editor Name Role Phone Elisabet Vee MD Primary Care Provider [phone] Allergies No known active allergies Medications Medication Sig Dispensed Refills Start Date End Date Status Gxaeipav-Klj-Md-FA ( VITAMINS PO) Active ibuprofen (ADVIL/MOTRIN) 800 MG tabletIndications:S VD (spontaneous vaginal delivery) Take 1 tablet (800 mg) by mouth every 6 hours as needed for other (cramping) 40 tablet 06/29/2018 Active Additional Information Patient not taking.Reported [...] nasal sprayIndications:Si nusitis, unspecified chronicity, unspecified location [place] 2 sprays into both nostrils daily 16 g 3 05/23/2019 Active guaiFENesin-codeine (ROBITUSSIN AC) 100-10 MG/5ML solutionIndications :Cough Take 5-10 mLs by mouth every 4 hours as needed for cough 240 mL 05/23/2019 Active Active Problems Problem Noted Date [...] T Respiratory Rate 16 06/29/2018 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
--- OUTSIDE RECORDS SUMMARY | 2023-12-17 07:54 | XMS_ITS | Continuity of Care Document ---
Author Name [facility] Organization [facility] Care Team Providers Care Carroting Machine Operator Name Role Phone [facility] Unavailable Unavailable Problems Combined list of problems from Department of Defense and Veterans Affairs facilities. It does not include entries that were removed or entered in error. Problem Status Onset Date Problem Type Date of Resolution Comments Source visit for: contraceptive surveillance Inactive 07/12/2012 Condition [facility] Guidance: Concerns About Unsafe Sexual Practices Inactive 07/12/2012 Condition DoD Need For Vaccination Against Influenza Inactive Condition [facility] visit for: screening exam pulmonary tuberculosis Inactive Condition [facility] visit for: screening exam viral disease Inactive Condition [facility] Test Inactive Condition [facility] visit for: services physical Active Condition [facility] visit for: ears / hearing exam Active Condition [facility] assessment of patient condition work-related Active Condition [facility] Medications Combined list of outpatient medications from Department of [employer] and Veterans Affairs facilities.Medications provided include 1) outpatient medications from the last 15 months, and 2) patient-reported medications. Medication Details Route Status Patient Instructions Prescription Expires Prescription Number Last Dispense Date Ordering Provider Order Date Order Qty Source cephalexin 500 mg oral capsule 0 [...] Site Reaction Lot Number CVX Code Drug Shipping Track Supervisor Status Comments Source SARS-COV-2 (COVID-19) vaccine, vector non-replicati ng, recombinant spike protein-Ad26, preservative free, 0.5 mL 1 2021 [id number] Unknown (UNK) comple t ed SARS-COV- 2 (COVID-19 ) vaccine, vector non-repli cating, recombina nt spike protein-A d26, preservat jennifer free, 0.5 mL DoD tetanus-dipht h toxoids (Td) adult/adol 2020 Right Arm [id number] GlaxoSmithKli ne complet ed tetanus-d iphth toxoids (Td) adult/ado l 11/13/20 Given Ambulat ory Pharmac y tetanus and diphtheria toxoids, adsorbed, preservative free, for adult use (2 Lf of tetanus toxoid and 2 Lf of diphtheria toxoid) 1 2020 MARIO MCCORMACK T [id number] 09 [facility] (B) complet ed tetanus and diphtheri a toxoids, adsorbed, preservat jennifer free, for adult use (2 Lf of tetanus toxoid and 2 Lf of diphtheri a toxoid) DoD influenza, injectable, quadrivalent- pf 2018 [id number] 150 Seqirus complet ed influenza , injectabl e, quadrival ent-pf 06/23/19 Given Ambulat ory Pharmac y Influenza, injectable, quadrivalent, preservative free 1 2018 [id number] 150 Seqirus (SEQ) complet ed Influenza , injectabl e, quadrival ent, preservat jennifer free DoD influenza, seasonal, injectable-pf 2016 [id number] 140 GlaxoSmithKli ne complet ed influenza , seasonal, injectabl e-pf 05/10/17 Given Ambulat ory Pharmac y Influenza, seasonal, injectable, preservative free 1 2016 [id number] 140 [facility] (SKB) complet ed Influenza , seasonal, injectabl e, preservat jennifer free DoD influenza, seasonal, injectable 2015 [id number] 141 Unknown complet ed influenza , seasonal, injectabl e 06/27/16 Given Ambulat ory Pharmac y Influenza, seasonal, injectable 1 2015 [id number] 141 Unknown (UNK) comple t ed Influenza , seasonal, injectabl e DoD influenza, injectable, quadrivalent- pf 2014 [id number] 150 GlaxoSmithKli ne complet ed influenza , injectabl e, quadrival ent-pf 06/29/15 Given Ambulat ory Pharmac y Influenza, injectable, quadrivalent, preservative free 1 2014 [id number] 150 SmithKline (SKB) complet ed Influenza , injectabl e, quadrival ent, preservat jennifer free DoD measles/mumps /rubella virus vaccine 2014 [id number] 03 Merck & Company Inc complet ed measles/m umps/rube lla virus vaccine 02/18/15 Given Ambulat ory Pharmac y measles, mumps and rubella virus vaccine 2 2014 [id number] 03 [employer] (MSD) complet ed measles, mumps and rubella virus vaccine DoD Influenza, injectable, MDCK-pf 2013 [id number] 153 Novartis Pharmaceutica ls complet ed Influenza , injectabl e, MDCK-pf 04/26/14 Given Ambulat ory Pharmac y Influenza, injectable, Madin Kassie Canine Kidney, preservative free 1 2013 [id number] 153 Novartis Pivot Data Cent[employer]. (NOV) complet ed Influenza , injectabl e, Madin [place] Canine Kidney, preservat jennifer free DoD Influenza, injectable, MDCK-pf 2012 [id number] 153 CSL Behring complet ed Influenza , injectabl e, MDCK-pf 04/22/13 Given Ambulat ory Pharmac y Influenza, injectable, Madin [place] Canine Kidney, preservative free 1 2012 [id number] 153 [facility] NBA Math HoopsherapMy [employer] Lane, Inc. (CSL) complet ed Influenza , injectabl e, Madin [place]ass[place] Canine Kidney, preservat jennifer free DoD tuberculin purified protein derivative 2011 [id number] 96 sanofi pasteur complet ed tuberculi n purified protein derivativ e 05/09/12 Given Ambulat ory Pharmac y influenza virus vaccine, live 2011 [id number] 111 GetAppmmune Inc comple t ed influenza virus vaccine, live 05/09/12 Given Ambulat ory Pharmac y influenza virus vaccine, live, attenuated, for intranasal use 1 2011 [id number] 111 MedIAdknowledge, Inc. (MED) complet ed influenza virus vaccine, live, attenuate d, for intranasa l use DoD hepatitis A-hepatitis B vaccine 2011 UNK 104 Unknown complet ed hepatitis A-hepatit is B vaccine 01/17/12 Given Ambulat ory Pharmac y hepatitis A and hepatitis B vaccine 3 2011 UNK 104 Unknown (UNK) comple t ed hepatitis A and hepatitis B vaccine DoD influenza, seasonal, injectable-pf 2010 [id number] 140 CSL Behring complet ed influenza , seasonal, injectabl e-pf 05/23/11 Given Ambulat ory Pharmac y Influenza, seasonal, injectable, preservative free 1 2010 [id number] 140 CS CaseRev[employer] Inc. (CSL) complet ed Influenza , seasonal, injectabl e, preservat jennifer free DoD hepatitis A-hepatitis B vaccine 2008 [id number] 104 GlaxoSmithKli ne complet ed hepatitis A-hepatit is B vaccine 02/01/09 Given Ambulat ory Pharmac y hepatitis A and hepatitis B vaccine 2 2008 [id number] 104 Smithine (SKB) complet ed hepatitis A and hepatitis B vaccine DoD tuberculin purified protein derivative 2008 [id number] 96 sanofi pasteur complet ed tuberculi n purified protein derivativ e 12/28/08 Given Ambulat ory Pharmac y tetanus, diphtheria, acellular pertu is 2008 [id number] 9BA 115 GlaxoSmithKli ne complet ed tetanus, diphtheri a, acellular pertussis 12/28/08 Given Ambulat ory Pharmac y meningococcal A,C,Y,W-135 (MCV4P) 2008 [id number] 114 sanofi pasteur complet ed meningoco ccal [...] diphtheria toxoid conjugate vaccine (MCV4P) 1 2008 [id number] 114 Sanofi Pasteur (PMC) complet ed meningoco ccal polysacch aride (groups A, C, Y and W-135) diphtheri a toxoid conjugate vaccine (MCV4P) DoD tetanus toxoid, reduced diphtheria toxoid, and acellular pertu is vaccine, adsorbed 1 2008 [id number] [id number] 115 SmithKline (SKB) complet ed tetanus toxoid, reduced diphtheri a toxoid, and acellular pertussis vaccine, adsorbed DoD Encounters Combined list of: 1) Encounters from Department of Veterans Affairs facilities going back up to thelast 18 months. 2) Encounters from the Department of Defense facilities going back up to 280 months. Location Location Details Encounter Type Encounter Number Reason For Visit Attending Provider ADM Date DC Date Status Disposition Source [employer](IEP Hearing Conservat ion) OUTPATIENT [id number] DEREK CAMACHO 12/26 Released w/o Limitations [employer](I EP Hearing Conserv ation) [employer](IEP Optometry ) OUTPATIENT [id number] HALEY MURPHY 01/29 Released w/o Limitations [employer](I EP Optomet ry) [facility] Medical Group([facility] Kym IRR/SRP) OUTPATIENT [id number] Notes Entered by: JUAN J CHOI RA 09 May 2012 0839 ------- ------- ------- ------- -- LVL1/OB EPI PRESCOTT 05/09 Released w/o Limitations [employer] [facility](M C IRR/SRP ) [facility] Medical Group([facility] C Gynecolog y) OUTPATIENT [id number] [facility] 001-13 KIN NAVARRETE 07/12 Released w/o Limitations [facility] Medical Group([facility] Gynecol ogy) [facility] OUTPATIENT [id number] Notes Entered by: ST LI MAHER 06 Mar 2019 1453 ------- ------- ------- ------- -- EVELIN LOPEZ 03/06 Released w/o Limitations [facility] Medical Group([facility]) [facility]) OUTPATIENT [id number] Notes Entered by: CARMEN CHAUDHARI 07 Mar 2019 1525 ------- ------- ------- ------- -- EVELIN LOPEZ 03/07 Released w/o Limitations [facility] Medical [facility]) [facility]([facility] Deploymen t Clinic) OUTPATIENT [id number] Notes Entered by: Jameson MEDLEY November717 ------- ------- ------- ------- -- KAMRYN FULLER 11/13 Released w/o Limitations [facility](SR P Deploym ent Clinic) [facility]) OUTPATIENT [id number] Notes Entered by: BERTHA KENNEDY 08 Oct [id number] ------- ------- ------- ------- -- CAROLINE TOTH 10/08 Released w/o Limitations [facility] Hearing Program ) [facility]) OUTPATIENT [id number] Notes Entered by: ANDRE LYN 08 Oct [id number] ------- ------- ------- ------- -- EULA ESPITIA 10/08 Released w/o Limitations [facility]) [facility]) OUTPATIENT [id number] MARIKA WOLF 10/09 Released w/o Limitations [facility] Deploy[facility] ent Clinic) [place], [place]([facility] F02A [place]) TELE CONSULT [id number] Notes Entered by: PAT BERRY 29 Oct 2021 1039 ------- ------- ------- ------- -- [facility] Poly-Ph armacy 21.12 Cohort #5 DANYEL ELIAS 10/29 [place], [place]([facility] [place]) Procedures Combined list of: 1) Procedures from Department of Veterans Affairs facilities [facility], not all VA non-surgical procedures are included; 2) All procedures from the Department of Defense facilities. Procedure Procedure Type Code Date Perfomer Comments Sourc e No data available for this section Ambulato ry Pharmacy Skin Test Anergy Tuberculin Intradermal Skin Test Anergy Tuberculin Intradermal 30192 [facility] Immunization Administration By Injection, Each Additional Vaccine [facility] Influenza Virus Vaccine Intranasal Live Attenuated [facility] Immunization Administration By Injection, One Vaccine Immunization Administration By Injection, One Vaccine 42160 [facility] Visual Function Screening Visual Function Screening 78701 009 HALEY MURPHY [facility] Physician Supervised Group Educational Services DEREK CAMACHO Special Physician Services Analysis Of Computerized Data Special Physician Services Analysis Of Computerized Data 42231 DEREK CAMACHO Audiometry Group Testing Audiometry Group Testing 50764 DEREK CAMACHO Ear mold/insert, not disposable, any type DEREK CAMACHO Ear Protector Attenuation Measurements Ear Protector Attenuation Measurements 90330 009 JANICEDEREK [facility] Threshold Audiogram (Pure Tone) Threshold Audiogram (Pure Tone) 15394 009 DEREK CAMACHO [facility] Td Vaccine Preservative Free, Adsorbed Td Vaccine Preservative Free, Adsorbed 24178 KAMRYN ARAGNO Td (adult), adsorbed; Series #: 1; 0.5 mL; IM; Right Arm; Mfg: SmithKline; Lot: [id number]; VIS given (Jae: 11/08/2019). [facility] Immunization Administration By Injection, One Vaccine Immunization Administration By Injection, One Vaccine 43942 KAMRYN ARANGO [facility] Preventive Medicine Administration Of Health Risk Questionnaire Patient-Focused Preventive Medicine Administration Of Health Risk Questionnaire Patient-Focused 73295 MYLA HOLT [facility] Psychometric Emotional / Behavioral A e ment Psychometric Emotional / Behavioral Assessment 07403 MYLA HOLT [facility] Threshold Audiogram (Pure Tone) Automated Threshold Audiogram (Pure Tone) Automated 0208T CAROLINE SPARKS [facility] Nutrition cla es, non-physician provider, per se EVELIN Sheets [facility] ADMINISTRATION OF PATIENT-FOCUSED HEALTH RISK ASSESSMENT INSTRUMENT (EG, HEALTH HAZARD APPRAISAL) WITH SCORING AND DOCUMENTATION, PER STANDARDIZED INSTRUMENT [facility] PURE TONE AUDIOMETRY (THRESHOLD), AUTOMATED; AIR ONLY [facility] BRIEF EMOTIONAL/BEHAVIO RAL ASSESSMENT (EG, DEPRESSION INVENTORY, ATTENTION-DEFICIT /HYPERACTIVITY DISORDER [ADHD] SCALE), WITH SCORING AND DOCUMENTATION, PER STANDARDIZED INSTRUMENT [facility] SCREENING TEST OF VISUAL ACUITY, QUANTITATIVE, BILATERAL 021 [facility] NUTRITION CLASSES, NON-PHYSICIAN PROVIDER, PER SESSION 019 [facility] SKIN TEST; TUBERCULOSIS, INTRADERMAL 012 [facility] VIS FUNCT SCREEN,AUTOMAT/SE IN-AUTOMAT BILAT QUANT DETERM VISUAL ACUITY,OCULAR ALIGN,COLOR VISION,PSEUDOISOC HROMAT PLATES,& FIELD VIS (MAY INC ALL/SOME SCRN DETERM FOR CONTRAST SENSITIV,VIS UND GLARE) 009 [facility] AUDIOMETRIC TESTING OF GROUPS 009 [facility] Social History Combined list of available smoking, tobacco, and other social history from Department of Defense and Veterans Affairs facilities. Social History Type Response Date Comment [facility] e This section is an empty social [...] Plan No data available for this section 12/17/2023 Ambulatory Pharmacy Functional Status Combined list of recent functional and cognitive assessments recorded at Department of Defense and Veterans Affairs (VA).VA Functional Tama Measurement (FIM) Scale: 1 = Total Assistance (Subject = 0% +), 2 = Maximal Assistance (Subject = 25% +), 3 = Moderate Assistance (Subject = 50% +), 4 = Minimal Assistance (Subject = 75% +), 5 = Supervision, 6 = Modified Tama (Device), 7 = Complete Tama (Timely, Safely). Assessment Date/Time Source Assessment Type Assessment Skill Assessment Score Assessment Details No data available for this section
--- OUTSIDE RECORDS SUMMARY | 2023-12-17 07:54 | XMS_ITS | Clinical Summary ---
Author Name Unknown Organization [facility] Address [address] [place] [address] Care Team Providers Care Steel Engraver Name Role Phone Trupti Hauser MD Primary Care Provider Source Comments You are receiving this document as you are listed as the primary care provider,follow-up provider, or the patient has been referred to you for consultation.This is in compliance with the Medicare and[facility] E[facility] Incentive [facility],which states Providers who transition their patient to another setting of careor provider of care or refers their patient to another provider of care shouldprovide summary care record for each transition of care or referral. [facility] Allergies No known active allergies Medications Medication Sig Dispensed Refills Start Date End Date Status Multiple Vitamins-Iron (MULTIVITAMIN/IRON OR) Take 1 Tablet by mouth daily. Active Active Problems Problem Noted Date Diagnosed Date Anxiety 02/24/2022 Atypical squamous cells of u ndetermined significance on cytologic smear of cervix (ASC-US) 06/20/2021 Overview: [facility] Review: History: 09/2016: NILM 05/2021: ASCUS, HPV- [...] Overview: Constipation NOS Bulimia nervosa 04/04/2007 09/14/2016 Immunizations Name Administration Dates Next Due DTaP 03/24/1995, 2,04/19/1990, 990,1989 Flu Vac (3+ yrs) 07/26/2008 HepB Ped/Adol (0-18 yrs) 04/13/2002,03/31/2001,0 01/14/2001 Hib (PRP-D) 02/07/1991,10/14/1990,07/19/1990 Influenza IIV4 (Quadrivalent ) 0.5mL (98140) 05/27/2021,04/13/2018,05/10/2017, 016 Luis COVID-19 Vaccine 08/21/2021 MCV4 [...] Comments Blood Pressure 126/82 07/23/2023 2:16 PM PRESCHOOL EDUCATION DIRECTOR Pulse 66 07/23/2023 2:16 PM PRESCHOOL EDUCATION DIRECTOR Temperature 37.1 ??C (98.7 ??F) 07/16/2021 3:08 PM CS T Respiratory Rate 16 03/24/2021 5:24 PM CDT Oxygen Saturation 99% 07/16/2021 3:08 PM PRESCHOOL EDUCATION DIRECTOR Inhaled Oxygen Concentration - - Weight 65.8 kg (145 lb) 07/23/2023 2:16 PM PRESCHOOL EDUCATION DIRECTOR Height 172.7 cm (5' 8) 02/24/2022 3:15 PM CDT Body Mass Index 22.05 02/24/2022 3:15 PM CDT Plan of Treatment Health Maintenance Due Date Last Done Comments COVID-19 Vaccine ( season) 2023 08/21/2021 Adult Preventive Visit 02/25/2024 02/24/2022 Influenza (Season Ended) 2024 021, 04/13/2018, 05/10/2017, Additional history exists Cervical Cancer Screening 06/05/2024 06/05/2021, DTaP/Tdap/Td (9 [...] on patient's age to complete this topic Procedures Procedure Name Priority Date/Time Associated Diagnosis Comments HEPATITIS C ANTIBODY, WITH REFLEX Routine 02/24/2022 4:08 PM CDT Need for hepatitis C screening test PAP TEST Routine 06/05/2021 9:41 AM CDT Cervical cancer screening HIV-1 P24 AND HIV-1/HIV-2 ANTIBODIES Routine 10/06/2016 11:50 AM PRESCHOOL EDUCATION DIRECTOR Screening examination for venereal disease from Last 3 Months or Most Recently Relevant to Health Maintenance Results * Hepatitis C Antibody, with Reflex (02/24/2022 4:08 PM CDT) Hepatitis C Antibody Negative (Non Reactive) Negative (Non Reactive) 02/24/2022 9:32 PM CDT [facility] Comment:Antibodies to HCV no t detected. Does not exclude the possiblity of exposure to HCV. Blood Venipuncture / Unknown 02/24/2022 4:08 PM CDT 02/24/2022 4:08 PM CDT Trupti Hauser MD LAB_1 [facility] [address] * (ABNORMAL) PAP Test (06/05/2021 9:41 AM CDT) Case Report Pap ? Case: [id number] ? Authorizing Provider: ??Lu Chambers MD ? Collected: ? 06/05/2021 0941 ? Ordering Location: ? [facility] ? Received: ?06/05/2021 1102 ? Services-PLUMBING INSTALLER ? First Screen: ?Tequila, Elisabet P, CT (ASCP) ? Pathologist: ? Jaguar Aldridge MD ? Specimen: ?Pap Test, Routine, Cervix/Endocerv ix ? 06/18/2021 2:55 PM PRESCHOOL EDUCATION DIRECTOR [facility] Pap Specimen Adequacy Satisfactory for evaluation, endocervical/tr ansformation zone component present. 06/18/2021 2:55 PM PRESCHOOL EDUCATION DIRECTOR [facility] Pap Interpretation Atypical squamous cells of undetermined significance (ASC-US).(A) 06/18/2021 2:55 PM PRESCHOOL EDUCATION DIRECTOR [facility] Pap Disclaimer The Pap test is a screening test designed to aid in the detection of cervical cancer and its precursor lesions. It is not a diagnostic procedure and should not be used as the sole means of detecting cervical cancer. Both false-positive and false-negative results may occur. 06/18/2021 2:55 PM PRESCHOOL EDUCATION DIRECTOR [facility] Gross Description The specimen is received in SurePath fixative and properly labeled. 1 Pap-stained SurePath slide is prepared. 06/18/2021 2:55 PM PRESCHOOL EDUCATION DIRECTOR [facility] Embedded Images 2:55 PM PRESCHOOL EDUCATION DIRECTOR [facility] Other Specimen Type ENTIRE ENDOCERVIX / Unknown 06/05/2021 9:41 AM CDT 06/05/2021 11:02 AM CDT Comment:LMP: Patient's last menstrual period was 05/26/2021. Lu Chambers MD LAB PATHOLOGY Performing Organization Address [facility] Co de Phone Number [address] [address] * LAB HIV-1 p24 AND HIV-1/HIV-2 ANTIBODIES (10/06/2016 11:50 AM PRESCHOOL EDUCATION DIRECTOR) HIV-1 p24 Ag and HIV-1/HIV-2 Ab Nonreactive Nonreactive PN SOFT 10/06/2016 11:5 0 AM PRESCHOOL EDUCATION DIRECTOR 10/06/2016 4:13 PM PRESCHOOL EDUCATION DIRECTOR Narrative PN SOFT - 10/06/2016 5:00 PM PRESCHOOL EDUCATION DIRECTOR Performed at [facility], [address] [place] [address] CLIA number [id number] Noemy Roldan APRN, CNP LAB_1 Performing Organization Address [facility] Co de Phone Number PN SOFT [address] [place] [phone] from Last 3 Months or Most Recently Relevant to Health Maintenance Care Teams Steel Engraver Relationship Specialty [place] [id number] [place] [id number] PCP - General Family Practice 08/31/16
--- OUTSIDE RECORDS SUMMARY | 2023-12-17 07:54 | XMS_ITS | Clinical Summary ---
Author Name Unknown Organization [facility] Address [address] [facility] [place] [address] Care Team Providers Care Perishable Fruit Inspector Name Role Phone Elisabet Vee MD Primary Care Provider [phone] Allergies No known active allergies Medications Medication Sig Dispensed Refills Start Date End Date Status Vzscxlma-Vlu-Cd-FA ( VITAMINS PO) Active ibuprofen (ADVIL/MOTRIN) 800 [...] nasal sprayIndications:Si nusitis, unspecified chronicity, unspecified location [place] 2 sprays into both nostrils daily 16 [...] T Respiratory Rate 16 06/29/2018 8:21 AM COD CLERK Oxygen Saturation 99% 05/23/2019 9:35 AM CDT Inhaled Oxygen Concentration - - Weight 63.1 kg (139 lb 1.6 oz) 05/23/2019 9:35 A M CDT Height 175.3 cm (5' 9) 05/23/2019 9:35 AM CDT Body Mass Index 20.54 05/23/2019 9:35 AM CDT Plan of Treatment Not on file Care Teams Perishable Fruit Inspector Relationship Specialty Start Date End Date Elisabet Vee MD PCP - General Nurse Practitioner 06/21/18
--- NOTE | 2023-12-17 08:15 | US_ITS ---
Patient: ONOFRE NEWBERRY Facility:?[facility] Patient ID:?[id number] Site Patient ID:?[id number]. Site :?1990 Study:?US-OB Pelvis anatomy-12/17/2023 8:52:53 AM Ordering Physician:Nila Chavez Final Report: ----ADDENDUM---- CORRECTION TO IMPRESSION: 2. Estimated gestational age is 20 weeks 3 days. CRL:rcd 12/24/2023 HISTORY: anatomic survey. COMPARISON: None available of this gestation. TECHNIQUE: Ultrasound examination of the is performed with transabdominal technique. FINDINGS: A single intrauterine gestation is seen in breech presentation with regular cardiac activity at 152 beats per minute. The placenta is anterior and is free of the cervical os. The placental grade is I and the amniotic fluid volume is normal. Single deepest vertical pocket: Normal at 4.0 cm. The cervix is nondilated and is normal length 3.7 centimeters. BPD: 4.5 cm 19 weeks 5 days HC: 17.8 cm 20 weeks 2 days AC: 15.3 cm 20 weeks 3 days FL: 3.4 cm 20 weeks 5 days The estimated age by ultrasound is 20 weeks 3 days, with an estimated date of delivery of 05/02/2024. This correlates well with the clinical age of 20 weeks 2 days. The ultrasound ratios are normal. The estimated weight of 360 grams is at the 58th percentile based on the clinical dates. The anatomic survey demonstrates normal appearing intracranial structures with a normal septum pellucidum and normal cerebellum. The lateral ventricle is normal in diameter at 6 mm. The upper lip, 4 chamber heart, left and right ventricular outflow tracts, diaphragm, stomach, cord insertion site, 3-vessel cord, kidneys, bladder and spine are normal in appearance. IMPRESSION: 1. Single intrauterine gestation in breech presentation with regular cardiac activity. 2. Estimated gestational age is 30 weeks 3 days. 3. Estimated weight of 360 grams is at the 58th percentile based on the clinical dates. Dictated by Tyler Prela MD @ 12/17/2023 8:19:11 PM Signed by:?Tyler Perla MD @12/17/2023 8:19:11 PM Signed by:?Tyler Perla MD @12/24/2023 11:36:29 AM (Electronic Signature)
== END 2023-12-17 07:53 | disposition home or self-care (01) ==
LOC: US 07:52
PROVIDERS: Visit Provider Obstetrics & Gynecology
DX: Z34.92 Encounter for supervision of normal pregnancy, unspecified, second trimester (principal); Z3A.20 20 weeks gestation of pregnancy
CPT/HCPCS: 76805

== ENCOUNTER 2024-02-11 09:29 | Outpatient (CLI) | payer OTHER, SELFPAY ==
--- OUTSIDE RECORDS SUMMARY | 2024-02-13 07:45 | XMS_ITS | Referral Summary ---
Author Organization [facility] Address [address] [facility] [place] [address] Care Team Providers Care Sticker On Name Role Phone Elisabet Vee MD Primary Care Provider [phone] Allergies No known active allergies Medications Medication Sig Dispensed Refills Start Date End Date Status Hiasieve-Ijw-Zi-FA ( VITAMINS PO) Active ibuprofen (ADVIL/MOTRIN) 800 [...] nasal sprayIndications:Si nusitis, unspecified chronicity, unspecified location [place] 2 sprays into both nostrils daily 16 [...] T Respiratory Rate 16 06/29/2018 8:21 AM PRESSURIZER Oxygen Saturation 99% 05/23/2019 9:35 AM CDT Inhaled Oxygen Concentration - - Weight 63.1 kg (139 lb 1.6 oz) 05/23/2019 9:35 A M CDT Height 175.3 cm (5' 9) 05/23/2019 9:35 AM CDT Body Mass Index 20.54 05/23/2019 9:35 AM CDT Plan of Treatment Not on file Care Teams Sticker On Relationship Specialty Start Date End Date Elisabet Vee MD PCP - General Nurse Practitioner 06/21/18
--- OUTSIDE RECORDS SUMMARY | 2024-02-13 07:45 | XMS_ITS | Clinical Summary ---
Author Organization [facility] Address [address] [facility] [place] [address] Care Team Providers Care Medical Record Transcriber Name Role Phone Elisabet Vee MD Primary Care Provider [phone] Allergies No known active allergies Medications Medication Sig Dispensed Refills Start Date End Date Status Vxroelec-Wgl-Dn-FA ( VITAMINS PO) Active ibuprofen (ADVIL/MOTRIN) 800 [...] nasal sprayIndications:Si nusitis, unspecified chronicity, unspecified location [place] 2 sprays into both nostrils daily 16 [...] T Respiratory Rate 16 06/29/2018 8:21 AM OIL PROGRAM COMPLIANCE SPECIALIST Oxygen Saturation 99% 05/23/2019 9:35 AM CDT Inhaled Oxygen Concentration - - Weight 63.1 kg (139 lb 1.6 oz) 05/23/2019 9:35 A M CDT Height 175.3 cm (5' 9) 05/23/2019 9:35 AM CDT Body Mass Index 20.54 05/23/2019 9:35 AM CDT Plan of Treatment Not on file Care Teams Medical Record Transcriber Relationship Specialty Start Date End Date Elisabet Vee MD PCP - General Nurse Practitioner 06/21/18
--- OUTSIDE RECORDS SUMMARY | 2024-02-13 07:46 | XMS_ITS | Continuity of Care Document ---
Author Name [facility] Organization [facility] Care Team Providers Care Business Services Sales Representative Name Role Phone [facility] Unavailable Unavailable Problems Combined list of problems from Department of Defense and Veterans Affairs facilities. It does not include entries that were removed or entered in error. Problem Status Onset Date Problem Type Date of Resolution Comments Source visit for: contraceptive surveillance Inactive 07/12/2012 Condition [facility] Guidance: Concerns About Unsafe Sexual Practices Inactive 07/12/2012 Condition DoD Need For Vaccination Against Influenza Inactive Condition [facility] visit for: screening exam pulmonary tuberculosis Inactive Condition [facility] visit for: screening exam viral disease Inactive Condition [facility] Test Inactive Condition [facility] visit for: services physical Active Condition [facility] visit for: ears / hearing exam Active Condition [facility] assessment of patient condition work-related Active Condition [facility] Medications Combined list of outpatient medications from Department of Home Comfort Zones and Veterans Affairs facilities.Medications provided include 1) [...] Site Reaction Lot Number CVX Code [facility] Coordinator Status Comments Source SARS-COV-2 (COVID-19) vaccine, vector non-replicati ng, recombinant spike protein-Ad26, preservative free, 0.5 mL 1 2021 [id number] Unknown (UNK) comple t ed SARS-COV- 2 (COVID-19 ) vaccine, vector non-repli cating, recombina nt spike protein-A d26, preservat jennifer free, 0.5 mL DoD tetanus-dipht h toxoids (Td) adult/adol 2020 Right Arm [id number] GlaxoSmithKli ne complet ed tetanus-d iphth toxoids (Td) adult/ado l 11/13/20 Given Ambulat ory Pharmac y tetanus and diphtheria toxoids, adsorbed, preservative free, for adult use (2 Lf of tetanus toxoid and 2 Lf of diphtheria toxoid) 1 2020 MARIO MCCORMACK T [id number] [facility] (B) complet ed tetanus and diphtheri a toxoids, adsorbed, preservat jennifer free, for adult use (2 Lf of tetanus toxoid and 2 Lf of diphtheri a toxoid) DoD influenza, injectable, quadrivalent- pf 2018 [id number] 150 Seqirus complet ed influenza , injectabl e, quadrival ent-pf 06/23/19 Given Ambulat ory Pharmac y Influenza, injectable, quadrivalent, preservative free 1 2018 [id number] 150 Seqirus (SEQ) complet ed Influenza , injectabl e, quadrival ent, preservat jennifer free DoD influenza, seasonal, injectable-pf 2016 [id number] 140 GlaxoSmithKli ne complet ed influenza , seasonal, injectabl e-pf 05/10/17 Given Ambulat ory Pharmac y Influenza, seasonal, injectable, preservative free 1 2016 [id number] 140 [facility] (SKB) complet ed Influenza , seasonal, injectabl e, preservat jennifer free DoD influenza, seasonal, injectable 2015 [id number] 141 Unknown complet ed influenza , seasonal, injectabl e 06/27/16 Given Ambulat ory Pharmac y Influenza, seasonal, injectable 1 2015 [id number] 141 Unknown (UNK) comple t ed Influenza , seasonal, injectabl e DoD influenza, injectable, quadrivalent- pf 2014 [id number] 150 GlaxoSmithKli ne complet ed influenza , injectabl e, quadrival ent-pf 06/29/15 Given Ambulat ory Pharmac y Influenza, injectable, quadrivalent, preservative free 1 2014 [id number] 150 SmithKline (SKB) complet ed Influenza , injectabl e, quadrival ent, preservat jennifer free DoD measles/mumps /rubella virus vaccine 2014 [id number] 03 Merck & Company Inc complet ed measles/m umps/rube lla virus vaccine 02/18/15 Given Ambulat ory Pharmac y measles, mumps and rubella virus vaccine 2 2014 [id number] 03 [employer] (MSD) complet ed measles, mumps and rubella virus vaccine DoD Influenza, injectable, MDCK-pf 2013 [id number] 153 Novartis Pharmaceutica ls complet ed Influenza , injectabl e, MDCK-pf 04/26/14 Given Ambulat ory Pharmac y Influenza, injectable, Madin Kassie Canine Kidney, preservative free 1 2013 [id number] 153 Novartis [employer] (NOV) complet ed Influenza , injectabl e, Madin [place] Canine Kidney, preservat jennifer free DoD Influenza, injectable, MDCK-pf 2012 [id number] 153 CSL Behring complet ed Influenza , injectabl e, MDCK-pf 04/22/13 Given Ambulat ory Pharmac y Influenza, injectable, Madin [place] Canine Kidney, preservative free 1 2012 [id number] 153 [facility] [employer] Inc. (CSL) complet ed Influenza , injectabl e, Madin Kassie Canine Kidney, preservat jennifer free DoD tuberculin purified protein derivative 2011 [id number] 96 sanofi pasteur complet ed tuberculi n purified protein derivativ e 05/09/12 Given Ambulat ory Pharmac y influenza virus vaccine, live 2011 [id number] 111 [employer] comple t ed influenza virus vaccine, live 05/09/12 Given Ambulat ory Pharmac y influenza virus vaccine, live, attenuated, for intranasal use 1 2011 [id number] 111 [employer]raGen [employer] Inc. (MED) complet ed influenza virus vaccine, live, attenuate d, for intranasa l use DoD hepatitis A-hepatitis B vaccine 2011 UNK 104 Unknown complet ed hepatitis A-hepatit is B vaccine 01/17/12 Given Ambulat ory Pharmac y hepatitis A and hepatitis B vaccine 3 2011 UNK 104 Unknown (UNK) comple t ed hepatitis A and hepatitis B vaccine DoD influenza, seasonal, injectable-pf 2010 [id number] 140 CSL Behring complet ed influenza , seasonal, injectabl e-pf 05/23/11 Given Ambulat ory Pharmac y Influenza, seasonal, injectable, preservative free 1 2010 [id number] 140 CS Micrima, Inc. (CSL) complet ed Influenza , seasonal, injectabl e, preservat jennifer free DoD hepatitis A-hepatitis B vaccine 2008 [id number] 104 GlaxoSmithKli ne complet ed hepatitis A-hepatit is B vaccine 02/01/09 Given Ambulat ory Pharmac y hepatitis A and hepatitis B vaccine 2 2008 [id number] 104 Smithine (SKB) complet ed hepatitis A and hepatitis B vaccine DoD tuberculin purified protein derivative 2008 [id number] 96 sanofi pasteur complet ed tuberculi n purified protein derivativ e 12/28/08 Given Ambulat ory Pharmac y tetanus, diphtheria, acellular pertu is 2008 [id number] 9BA 115 GlaxoSmithKli ne complet ed tetanus, diphtheri a, acellular pertussis 12/28/08 Given Ambulat ory Pharmac y meningococcal A,C,Y,W-135 (MCV4P) 2008 [id number] 114 sanofi pasteur complet ed meningoco ccal [...] diphtheria toxoid conjugate vaccine (MCV4P) 1 2008 [id number] 114 Sanofi Pasteur (PMC) complet ed meningoco ccal polysacch aride (groups A, C, Y and W-135) diphtheri a toxoid conjugate vaccine (MCV4P) DoD tetanus toxoid, reduced diphtheria toxoid, and acellular pertu is vaccine, adsorbed 1 2008 [id number] 115 SmithKline (SKB) complet ed tetanus [...] [employer](IEP Hearing Conservat ion) OUTPATIENT [id number] DEREK CAMACHO 12/26 Released w/o Limitations [employer](I EP Hearing Conserv ation) [employer](IEP Optometry ) OUTPATIENT [id number] HALEY MURPHY 01/29 Released w/o Limitations [employer](I EP Optomet ry) [facility] Kym IRR/SRP) OUTPATIENT [id number] Notes Entered by: JUAN J CHOI RA 09 May 2012 0839 ------- ------- ------- ------- -- LVL1/OB EPI PRESCOTT 05/09 Released w/o Limitations [employer](M C IRR/SRP ) [facility] C Gynecolog y) OUTPATIENT [id number] [facility] [id number] KIN NAVARRETE 07/12 Released w/o Limitations [facility] Gynecol ogy) [facility]) OUTPATIENT [id number] Notes Entered by: ST LI MAHER 06 Mar 2019 1453 ------- ------- ------- ------- -- EVELIN LOPEZ 03/06 Released w/o Limitations [facility]) OUTPATIENT [id number] Notes Entered by: CARMEN CHAUDHARI 07 Mar 2019 1525 ------- ------- ------- ------- -- EVELIN LOPEZ 03/07 Released w/o Limitations [facility]) [facility] [employer]([facility] Deploymen t Clinic) OUTPATIENT [id number] Notes Entered by: Jameson MEDLEY November717 ------- ------- ------- ------- -- KAMRYN FULLER 11/13 Released w/o Limitations [employer](SR P Deploym ent Clinic) [facility] [employer](SRP Hearing Program) OUTPATIENT [id number] Notes Entered by: BERTHA KENNEDY 08 Oct 2021719 ------- ------- ------- ------- -- CAROLINE TOTH 10/08 Released w/o Limitations [facility] [employer](SR P Hearing Program ) [facility] [employer]([facility] Deploymen t Clinic) OUTPATIENT [id number] Notes Entered by: ANDRE LYN 08 Oct [id number] ------- ------- ------- ------- -- DEMEULA SONG 10/08 Released w/o Limitations [facility] [employer](SR P Deploym ent Clinic) [facility] [employer](SRP Deploymen t Clinic) OUTPATIENT [id number] MARIKA WOLF 10/09 Released w/o Limitations [facility] [employer](SR P Deploym ent Clinic) [place], [place]([facility] F02A [place]) TELE CONSULT [id number] Notes Entered by: PAT BERRY 29 Oct 2021 1039 ------- ------- ------- ------- -- [facility] Poly-Ph armacy 21.12 Cohort #5 DANYEL ELIAS Homer 10/29 [place], [place]([facility] [place]) Procedures Combined list of: 1) Procedures from Department of Veterans Affairs facilities [facility], not all VA non-surgical procedures are included; 2) All procedures from the Department of Defense facilities. Procedure Procedure Type Code Date Perfomer Comments Sourc e No data available for this section Ambulato ry Pharmacy ADMINISTRATION OF PATIENT-FOCUSED HEALTH RISK ASSESSMENT INSTRUMENT (EG, HEALTH HAZARD APPRAISAL) WITH SCORING AND DOCUMENTATION, PER STANDARDIZED INSTRUMENT [facility] PURE TONE AUDIOMETRY (THRESHOLD), AUTOMATED; AIR ONLY [facility] BRIEF EMOTIONAL/BEHAVIO RAL ASSESSMENT (EG, DEPRESSION INVENTORY, ATTENTION-DEFICIT /HYPERACTIVITY DISORDER [ADHD] SCALE), WITH SCORING AND DOCUMENTATION, PER STANDARDIZED INSTRUMENT [facility] SCREENING TEST OF VISUAL ACUITY, QUANTITATIVE, BILATERAL 021 [facility] NUTRITION CLASSES, NON-PHYSICIAN PROVIDER, PER SESSION 019 [facility] SKIN TEST; TUBERCULOSIS, INTRADERMAL 012 [facility] VIS FUNCT SCREEN,AUTOMAT/SE HI-AUTOMAT BILAT QUANT DETERM VISUAL ACUITY,OCULAR ALIGN,COLOR VISION,PSEUDOISOC HROMAT PLATES,& FIELD VIS (MAY INC ALL/SOME SCRN DETERM FOR CONTRAST SENSITIV,VIS UND GLARE) 009 [facility] AUDIOMETRIC TESTING OF GROUPS 009 [facility] Skin Test Anergy Tuberculin Intradermal Skin Test Anergy Tuberculin Intradermal 58146 EPI POOLE [facility] Immunization Administration By Injection, Each Additional Vaccine EPI POOLE [facility] Influenza Virus Vaccine Intranasal Live Attenuated EPI POOLE [facility] Immunization Administration By Injection, One Vaccine Immunization Administration By Injection, One Vaccine 00688 EPI POOLE [facility] Visual Function Screening Visual Function Screening 11503 009 HALEY MURPHY [facility] Physician Supervised Group Educational Services DEREK CAMACHO [facility] Special Physician Services Analysis Of Computerized Data Special Physician Services Analysis Of Computerized Data 47734 DEREK CAMACHO [facility] Audiometry Group Testing Audiometry Group Testing 11332 RAYMONDDEREK [facility] Ear mold/insert, not disposable, any type JANICEDEREK KOLB [facility] Ear Protector Attenuation Measurements Ear Protector Attenuation Measurements 03621 JANICEDEREK [facility] Threshold Audiogram (Pure Tone) Threshold Audiogram (Pure Tone) 83584 RAYMONDDEREK [facility] Td Vaccine Preservative Free, Adsorbed Td Vaccine Preservative Free, Adsorbed 34975 KAMRYN ARANGO Td (adult), adsorbed; Series #: 1; 0.5 mL; IM; Right Arm; Mfg: Spottlyine; Lot: [id number]; VIS given (Jae: 11/08/2019). [facility] Immunization Administration By Injection, One Vaccine Immunization Administration By Injection, One Vaccine 93211 KAMRYN ARANGO [facility] Preventive Medicine Administration Of Health Risk Questionnaire Patient-Focused Preventive Medicine Administration Of Health Risk Questionnaire Patient-Focused 18477 MYLA HOLT [facility] Psychometric Emotional / Behavioral A e ment Psychometric Emotional / Behavioral Assessment 37919 MYLA HOLT [facility] Threshold Audiogram (Pure Tone) Automated Threshold Audiogram (Pure Tone) Automated 0208T CAROLINE SPARKS [facility] Nutrition cla es, non-physician provider, per se EVELIN Sheets [facility] Social History Combined list of available smoking, [...] Plan No data available for this section 02/13/2024 Ambulatory Pharmacy Functional Status Combined list of recent functional and cognitive assessments recorded at Department of Defense and Veterans Affairs (VA).VA Functional [place] Measurement (FIM) Scale: 1 = Total Assistance (Subject = 0% +), 2 = Maximal Assistance (Subject = 25% +), 3 = Moderate Assistance (Subject = 50% +), 4 = Minimal Assistance (Subject = 75% +), 5 = Supervision, 6 = Modified [place] (Device), 7 = Complete [place] (Timely, Safely). Assessment Date/Time Source Assessment Type Assessment Skill Assessment Score Assessment Details No data available for this section
--- OUTSIDE RECORDS SUMMARY | 2024-02-13 07:46 | XMS_ITS | Clinical Summary ---
Author Organization [facility] Address [address] [address] Care Team Providers Care Store Gift Wrap Associate Name Role Phone Trupti Hauser MD Primary Care Provider Source Comments You are receiving this document as you are listed as the primary care provider,follow-up provider, or the patient has been referred to you for consultation.This is in compliance with the Medicare andMedicaid EHR Incentive Program,which states Providers who transition their patient to another setting of careor provider of care or refers their patient to another provider of care shouldprovide summary care record for each transition of care or referral. [facility] Allergies No known active allergies Medications Medication Sig Dispensed Refills Start Date End Date Status Multiple Vitamins-Iron (MULTIVITAMIN/IRON OR) Take 1 Tablet by mouth daily. Active Active Problems Problem Noted Date Diagnosed Date Anxiety 02/24/2022 Atypical squamous cells of u ndetermined significance on cytologic smear of cervix (ASC-US) 06/20/2021 Overview: [facility] Review: History: 09/2016: NILM 05/2021: ASCUS, [...] (PRP-D) 02/07/1991,10/14/1990,07/19/1990 Influenza IIV4 (Quadrivalent ) 0.5mL (29610) 05/27/2021,04/13/2018,05/10/2017, 016 Luis COVID-19 Vaccine 08/21/2021 MCV4 [...] Comments Blood Pressure 126/82 07/23/2023 2:16 PM SENIOR PROFESSIONAL SERVICES CONSULTANT Pulse 66 07/23/2023 2:16 PM SENIOR PROFESSIONAL SERVICES CONSULTANT Temperature 37.1 ??C (98.7 ??F) 07/16/2021 3:08 PM CS T Respiratory Rate 16 03/24/2021 5:24 PM CDT Oxygen Saturation 99% 07/16/2021 3:08 PM SENIOR PROFESSIONAL SERVICES CONSULTANT Inhaled Oxygen Concentration - - Weight 65.8 kg (145 lb) 07/23/2023 2:16 PM SENIOR PROFESSIONAL SERVICES CONSULTANT Height 172.7 cm (5' 8) 02/24/2022 3:15 PM CDT Body Mass Index 22.05 02/24/2022 3:15 PM CDT Plan of Treatment Health Maintenance Due Date Last Done Comments COVID-19 Vaccine ( season) 2023 08/21/2021 Adult Preventive Visit 02/25/2024 02/24/2022 Influenza (#1) 2024 05/27/2021, 12/2017, 05/10/2017, Additional history exists Cervical Cancer Screening 06/05/2024 06/05/2021, DTaP/Tdap/Td (9 - Tdap) 04/13/2028 04/13/20, 02/05/2017, 01/07/2012, Additional history exists Zoster/Shingles (1 [...] AND HIV-1/HIV-2 ANTIBODIES Routine 10/06/2016 11:50 AM SENIOR PROFESSIONAL SERVICES CONSULTANT Screening examination for venereal disease from Last 3 Months or Most Recently Relevant to Health Maintenance Results * Hepatitis C Antibody, with Reflex (02/24/2022 4:08 PM CDT) Hepatitis C Antibody Negative (Non Reactive) Negative (Non Reactive) 02/24/2022 9:32 PM CDT [facility] Comment:Antibodies to HCV no t detected. Does not exclude the possiblity of exposure to HCV. Blood Venipuncture / Unknown 02/24/2022 4:08 PM CDT 02/24/2022 4:08 PM CDT Trupti Hauser MD LAB_1 [facility] [address] * (ABNORMAL) PAP Test (06/05/2021 9:41 AM CDT) Case Report Pap ? Case: [id number] ? Authorizing Provider: ??Lu Chambers MD ? Collected: ? 06/05/2021 0941 ? Ordering Location: ? [facility] ? Received: ?06/05/2021 1102 ? Services-RAG CUTTING MACHINE FEEDER ? First Screen: ?Tequila, Elisabet P, CT (ASCP) ? Pathologist: ? Jaguar Aldridge MD ? Specimen: ?Pap Test, Routine, Cervix/Endocerv ix ? 06/18/2021 2:55 PM SENIOR PROFESSIONAL SERVICES CONSULTANT [facility] Pap Specimen Adequacy Satisfactory for evaluation, endocervical/tr ansformation zone component present. 06/18/2021 2:55 PM SENIOR PROFESSIONAL SERVICES CONSULTANT [facility] Pap Interpretation Atypical squamous cells of undetermined significance (ASC-US).(A) 06/18/2021 2:55 PM SENIOR PROFESSIONAL SERVICES CONSULTANT [facility] Pap Disclaimer The Pap test is a screening test designed to aid in the detection of cervical cancer and its precursor lesions. It is not a diagnostic procedure and should not be used as the sole means of detecting cervical cancer. Both false-positive and false-negative results may occur. 06/18/2021 2:55 PM SENIOR PROFESSIONAL SERVICES CONSULTANT [facility] Gross Description The specimen is received in SurePath fixative and properly labeled. 1 Pap-stained SurePath slide is prepared. 06/18/2021 2:55 PM SENIOR PROFESSIONAL SERVICES CONSULTANT [facility] Embedded Images 2:55 PM SENIOR PROFESSIONAL SERVICES CONSULTANT [facility] Other Specimen Type ENTIRE ENDOCERVIX / Unknown 06/05/2021 9:41 AM CDT 06/05/2021 11:02 AM CDT Comment:LMP: Patient's last menstrual period was 05/26/2021. Lu Chambers MD LAB PATHOLOGY Performing Organization Address [facility] Co de Phone Number [facility] [address] [place] [id number] [place] [address] * LAB HIV-1 p24 AND HIV-1/HIV-2 ANTIBODIES (10/06/2016 11:50 AM SENIOR PROFESSIONAL SERVICES CONSULTANT) HIV-1 p24 Ag and HIV-1/HIV-2 Ab Nonreactive Nonreactive PN SOFT 10/06/2016 11:5 0 AM SENIOR PROFESSIONAL SERVICES CONSULTANT 10/06/2016 4:13 PM SENIOR PROFESSIONAL SERVICES CONSULTANT Narrative PN SOFT - 10/06/2016 5:00 PM SENIOR PROFESSIONAL SERVICES CONSULTANT Performed at [facility], [address] [place] [address] CLIA number [id number] Noemy Roldan APRN, CNP LAB_1 Performing Organization Address [facility] Co de Phone Number PN SOFT [address] [place] [phone] from Last 3 Months or Most Recently Relevant to Health Maintenance Care Teams Store Gift Wrap Associate Relationship Specialty [place] [id number] [address] [place] [id number] PCP - General Family Practice 08/31/16
== END 2024-02-11 09:30 | disposition home or self-care (01) ==
LOC: NFLDREF 02-13 07:44
PROVIDERS: Visit Provider Obstetrics & Gynecology
DX: Z34.83 Encounter for supervision of other normal pregnancy, third trimester (principal)
CPT/HCPCS: 86592

== ENCOUNTER 2024-02-25 07:59 | Outpatient (CLI) | payer OTHER, SELFPAY ==
--- OUTSIDE RECORDS SUMMARY | 2024-02-28 14:31 | XMS_ITS | Referral Summary ---
Author Organization [facility] Address [address] [facility] [place] [address] Care Team Providers Care Septic Tank Service Technician Name Role Phone Elisabet Vee MD Primary Care Provider [phone] Allergies No known active allergies Medications Medication Sig Dispensed Refills Start Date End Date Status Riodxxxu-Nxi-Hw-FA ( VITAMINS PO) Active ibuprofen (ADVIL/MOTRIN) 800 [...] nasal sprayIndications:Si nusitis, unspecified chronicity, unspecified location Glenvil 2 sprays into both nostrils daily 16 [...] T Respiratory Rate 16 06/29/2018 8:21 AM VASCULAR NEUROLOGIST Oxygen Saturation 99% 05/23/2019 9:35 AM CDT Inhaled Oxygen Concentration - - Weight 63.1 kg (139 lb 1.6 oz) 05/23/2019 9:35 A M CDT Height 175.3 cm (5' 9) 05/23/2019 9:35 AM CDT Body Mass Index 20.54 05/23/2019 9:35 AM CDT Plan of Treatment Not on file Care Teams Septic Tank Service Technician Relationship Specialty Start Date End Date Elisabet Vee MD PCP - General Nurse Practitioner 06/21/18
--- OUTSIDE RECORDS SUMMARY | 2024-02-28 14:31 | XMS_ITS | Continuity of Care Document ---
Author Name [facility] Organization [facility] Care Team Providers Care Renewal Specialist Name Role Phone [facility] Unavailable Unavailable Problems Combined list of problems from Department of Defense and Veterans Affairs facilities. It does not include entries that were removed or entered in error. Problem Status Onset Date Problem Type Date of Resolution Comments Source visit for: contraceptive surveillance Inactive 07/12/2012 Condition [facility] Guidance: Concerns About Unsafe Sexual Practices Inactive 07/12/2012 Condition DoD Need For Vaccination Against Influenza Inactive Condition [facility] visit for: screening exam pulmonary tuberculosis Inactive Condition [facility] visit for: screening exam viral disease Inactive Condition [facility] Test Inactive Condition [facility] visit for: services physical Active Condition [facility] visit for: ears / hearing exam Active Condition [facility] assessment of patient condition work-related Active Condition [facility] Medications Combined list of outpatient medications from Department of [place] and Veterans Affairs facilities.Medications provided include 1) [...] Site Reaction Lot Number CVX Code Drug Certified Optician Status Comments Source SARS-COV-2 (COVID-19) vaccine, vector non-replicati ng, recombinant spike protein-Ad26, preservative free, 0.5 mL 1 2021 [id number] Unknown (UNK) comple t ed SARS-COV- 2 (COVID-19 ) vaccine, vector non-repli cating, recombina nt spike protein-A d26, preservat jennifer free, 0.5 mL DoD tetanus-dipht h toxoids (Td) adult/adol 2020 Right Arm [id number] GlaxoSmithKli ne complet ed tetanus-d iphth toxoids (Td) adult/ado l 11/13/20 Given Ambulat ory Pharmac y tetanus and diphtheria toxoids, adsorbed, preservative free, for adult use (2 Lf of tetanus toxoid and 2 Lf of diphtheria toxoid) 1 2020 MARIO MCCORMACK T [id number] [facility] (B) complet ed tetanus and diphtheri a toxoids, adsorbed, preservat jennifer free, for adult use (2 Lf of tetanus toxoid and 2 Lf of diphtheri a toxoid) DoD influenza, injectable, quadrivalent- pf 2018 [id number] 150 Seqirus complet ed influenza , injectabl e, quadrival ent-pf 06/23/19 Given Ambulat ory Pharmac y Influenza, injectable, quadrivalent, preservative free 1 2018 [id number] 150 Seqirus (SEQ) complet ed Influenza , injectabl e, quadrival ent, preservat jennifer free DoD influenza, seasonal, injectable-pf 2016 [id number] 140 GlaxoSmithKli ne complet ed influenza , seasonal, injectabl e-pf 05/10/17 Given Ambulat ory Pharmac y Influenza, seasonal, injectable, preservative free 1 2016 [id number] 140 [facility] (SKB) complet ed Influenza , seasonal, injectabl e, preservat jennifer free DoD influenza, seasonal, injectable 2015 [id number] 141 Unknown complet ed influenza , seasonal, injectabl e 06/27/16 Given Ambulat ory Pharmac y Influenza, seasonal, injectable 1 2015 [id number] 141 Unknown (UNK) comple t ed Influenza , seasonal, injectabl e DoD influenza, injectable, quadrivalent- pf 2014 [id number] 150 GlaxoSmithKli ne complet ed influenza , injectabl e, quadrival ent-pf 06/29/15 Given Ambulat ory Pharmac y Influenza, injectable, quadrivalent, preservative free 1 2014 [id number] 150 SmithKline (SKB) complet ed Influenza , injectabl e, quadrival ent, preservat jennifer free DoD measles/mumps /rubella virus vaccine 2014 [id number] Merck & Company Inc complet ed measles/m umps/rube lla virus vaccine 02/18/15 Given Ambulat ory Pharmac y measles, mumps and rubella virus vaccine 2 2014 [id number] 03 Pitadela (MSD) complet ed measles, mumps and rubella virus vaccine DoD Influenza, injectable, MDCK-pf 2013 [id number] 153 Novartis Pharmaceutica ls complet ed Influenza , injectabl e, MDCK-pf 04/26/14 Given Ambulat ory Pharmac y Influenza, injectable, Madin Kassie Canine Kidney, preservative free 1 2013 [id number] 153 Novartis [employer]. (NOV) complet ed Influenza , injectabl e, Madin Wilton Canine Kidney, preservat jennifer free DoD Influenza, injectable, MDCK-pf 2012 [id number] 153 CSL Behring complet ed Influenza , injectabl e, MDCK-pf 04/22/13 Given Ambulat ory Pharmac y Influenza, injectable, Madin Kassie Canine Kidney, preservative free 1 2012 [id number] 153 [facility] CoMentisherapVrvana, Inc. (CSL) complet ed Influenza , injectabl e, Madin Kassie Canine Kidney, preservat jennifer free DoD tuberculin purified protein derivative 2011 [id number] 96 sanofi pasteur complet ed tuberculi n purified protein derivativ e 05/09/12 Given Ambulat ory Pharmac y influenza virus vaccine, live 2011 [id number] 111 Care[employer]em[employer] Inc comple t ed influenza virus vaccine, live 05/09/12 Given Ambulat ory Pharmac y influenza virus vaccine, live, attenuated, for intranasal use 1 2011 [id number] 111 MedIG-CON, Inc. (MED) complet ed influenza virus vaccine, live, attenuate d, for intranasa l use DoD hepatitis A-hepatitis B vaccine 2011 UNK 104 Unknown complet ed hepatitis A-hepatit is B vaccine 01/17/12 Given Ambulat ory Pharmac y hepatitis A and hepatitis B vaccine 3 2011 UNK 104 Unknown (UNK) comple t ed hepatitis A and hepatitis B vaccine DoD influenza, seasonal, injectable-pf 2010 [id number] 140 CSL Behring complet ed influenza , seasonal, injectabl e-pf 05/23/11 Given Ambulat ory Pharmac y Influenza, seasonal, injectable, preservative free 1 2010 [id number] 140 CS MIKESTAR, Inc. (CSL) complet ed Influenza , seasonal, injectabl e, preservat jennifer free DoD hepatitis A-hepatitis B vaccine 2008 [id number] 104 GlaxoSmithKli ne complet ed hepatitis A-hepatit is B vaccine 02/01/09 Given Ambulat ory Pharmac y hepatitis A and hepatitis B vaccine 2 2008 [id number] 104 Smithine (SKB) complet ed hepatitis A and hepatitis B vaccine DoD tuberculin purified protein derivative 2008 [id number] 96 sanofi pasteur complet ed tuberculi n purified protein derivativ e 12/28/08 Given Ambulat ory Pharmac y tetanus, diphtheria, acellular pertu is 2008 [id number] 9BA 115 GlaxoSmithKli ne complet ed tetanus, diphtheri a, acellular pertussis 12/28/08 Given Ambulat ory Pharmac y meningococcal A,C,Y,W-135 (MCV4P) 2008 [id number] 114 sanofi pasteur complet ed meningoco ccal [...] diphtheria toxoid conjugate vaccine (MCV4P) 1 2008 [id number] 114 Sanofi Pasteur (PMC) complet ed meningoco ccal polysacch aride (groups A, C, Y and W-135) diphtheri a toxoid conjugate vaccine (MCV4P) DoD tetanus toxoid, reduced diphtheria toxoid, and acellular pertu is vaccine, adsorbed 1 2008 [id number] [id number] 115 SmithKline (SKB) complet ed tetanus [...] [employer](IEP Hearing Conservat ion) OUTPATIENT [id number] DEREK CAMACHO 12/26 Released w/o Limitations [employer](I EP Hearing Conserv ation) [employer](IEP Optometry ) OUTPATIENT [id number] HALEY MURPHY 01/29 Released w/o Limitations [employer](I EP Optomet ry) [facility] Medical Group([facility] Kym IRR/SRP) OUTPATIENT [id number] Notes Entered by: JUAN J CHOI RA 09 May 2012 0839 ------- ------- ------- ------- -- LVL1/OB EPI PRESCOTT 05/09 Released w/o Limitations [employer](M C IRR/SRP ) [facility] Medical Group([facility] C Gynecolog y) OUTPATIENT [id number] [facility] [id number] KIN NAVARRETE 07/12 Released w/o Limitations [facility] Medical Group([facility] Gynecol ogy) [facility]) OUTPATIENT [id number] Notes Entered by: ST LI MAHER 06 Mar 2019 1453 ------- ------- ------- ------- -- EVELIN LOPEZ 03/06 Released w/o Limitations [facility] Medical Group(A [facility]) [facility]) OUTPATIENT [id number] Notes Entered by: CARMEN CHAUDHARI 07 Mar 2019 1525 ------- ------- ------- ------- -- EVELIN LOPEZ 03/07 Released w/o Limitations [facility] Medical Group(A [facility]) [facility] [place]([facility] Deploymen t Clinic) OUTPATIENT [id number] Notes Entered by: Jameson MEDLEY November717 ------- ------- ------- ------- -- KAMRYN FULLER 11/13 Released w/o Limitations [facility] [place](SR P Deploym ent Clinic) [facility] [place](SRP Hearing Program) OUTPATIENT [id number] Notes Entered by: BERTHA KENNEDY 08 Oct 2021719 ------- ------- ------- ------- -- CAROLINE TOTH 10/08 Released w/o Limitations [facility] [place](SR P Hearing Program ) [facility] [place]([facility] Deploymen t Clinic) OUTPATIENT [id number] Notes Entered by: ANDRE LYN 08 Oct 2021717 ------- ------- ------- ------- -- EULA ESPITIA 10/08 Released w/o Limitations [facility] [place](SR P Deploym ent Clinic) [facility] [place](SR[facility] Deploymen t Clinic) OUTPATIENT [id number] MARIKA WOLF 10/09 Released w/o Limitations [facility] [place](SR P Deploym ent Clinic) [place] [place]) TELE CONSULT [id number] Notes Entered by: PAT BERRY 29 Oct 2021 1039 ------- ------- ------- ------- -- TPR Poly-Ph armacy 21.12 Cohort #5 DANYEL ELIAS 10/29 [place], [place]([facility] [place]) Procedures Combined list of: 1) Procedures from Department of Veterans Affairs facilities going back [facility] to [facility], not all VA non-surgical procedures are included; 2) All procedures from the Department of Defense facilities. Procedure Procedure Type Code Date Perfomer Comments Sour e Skin Test Anergy Tuberculin Intradermal Skin Test Anergy Tuberculin Intradermal 18080 [facility] Immunization Administration By Injection, Each Additional Vaccine [facility] Influenza Virus Vaccine Intranasal Live Attenuated [facility] Immunization Administration By Injection, One Vaccine Immunization Administration By Injection, One Vaccine 94600 [facility] Visual Function Screening Visual Function Screening 10079 009 HALEY MURPHY [facility] Physician Supervised Group Educational Services DEREK CAMACHO Special Physician Services Analysis Of Computerized Data Special Physician Services Analysis Of Computerized Data 78632 DEREK CAMACHO Audiometry Group Testing Audiometry Group Testing 51943 DEREK CAMACHO Ear mold/insert, not disposable, any type DEREK CAMACHO Ear Protector Attenuation Measurements Ear Protector Attenuation Measurements 47921 DEREK CAMACHO Threshold Audiogram (Pure Tone) Threshold Audiogram (Pure Tone) 34001 009 DEREK CAMACHO [facility] Td Vaccine Preservative Free, Adsorbed Td Vaccine Preservative Free, Adsorbed 86694 KAMRYN ARANGO Td (adult), adsorbed; Series #: 1; 0.5 mL; IM; Right Arm; Mfg: [employer]; Lot: [id number]; VIS given (Jae: 11/08/2019). DoD Immunization Administration By Injection, One Vaccine Immunization Administration By Injection, One Vaccine 88019 KAMRYN ARANGO [facility] Preventive Medicine Administration Of Health Risk Questionnaire Patient-Focused Preventive Medicine Administration Of Health Risk Questionnaire Patient-Focused 52195 MYLA HOLT [facility] Psychometric Emotional / Behavioral A e ment Psychometric Emotional / Behavioral Assessment 88651 MYLA HOLT Threshold Audiogram (Pure Tone) Automated Threshold Audiogram (Pure Tone) Automated 0208T CAROLINE SPARKS [facility] Nutrition cla es, non-physician provider, per se EVELIN Sheets [facility] No data available for this section Ambulato ry Pharmacy Social History Combined list of available smoking, tobacco, and other social history from Department of Defense and Veterans Affairs facilities. Social History Type Response Date Comment Sour e This section is an empty social history section. [facility] Assessment and Plan Combined list of future care activities from Department of Defense and Veterans Affairs facilities (e.g., assessment and plan notes, appointments, orders, and referrals). Additional future care activities may be listed in the Plan of Care section. Result Assessment and Plan Date Source Assessment and Plan No data available for this section 02/28/2024 Ambulatory Pharmacy Functional Status Combined list of recent functional and cognitive assessments recorded at Department of Defense and Veterans Affairs ([place]).VA Functional [place] Measurement (FIM) Scale: 1 = Total Assistance (Subject = 0% +), 2 = Maximal Assistance (Subject = 25% +), 3 = Moderate Assistance (Subject = 50% +), 4 = Minimal Assistance (Subject = 75% +), 5 = Supervision, 6 = Modified [place] (Device), 7 = Complete [place] (Timely, Safely). Assessment Date/Time Source Assessment Type Assessment Skill Assessment Score Assessment Details No data available for this section
--- OUTSIDE RECORDS SUMMARY | 2024-02-28 14:31 | XMS_ITS | Clinical Summary ---
Author Organization [facility] Address [address] [place] [address] Care Team Providers Care Hot Blaster Name Role Phone Trupti Hauser MD Primary [...] for each transition of care or referral. [facility] Allergies No known active allergies Medications Medication Sig Dispensed Refills Start Date End Date Status Multiple Vitamins-Iron (MULTIVITAMIN/IRON OR) Take 1 Tablet by mouth daily. Active Active Problems Problem Noted Date Diagnosed Date Anxiety 02/24/2022 Atypical squamous cells of u ndetermined significance on cytologic smear of cervix (ASC-US) 06/20/2021 Overview: [facility] Review: History: 09/2016: NILM 05/2021: ASCUS, HPV- [...] (PRP-D) 02/07/1991,10/14/1990,07/19/1990 Influenza IIV4 (Quadrivalent ) 0.5mL (26577) 05/27/2021,04/13/2018,05/10/2017, 016 Luis COVID-19 Vaccine 08/21/2021 MCV4 [...] Comments Blood Pressure 126/82 07/23/2023 2:16 PM ASBESTOS HANDLER Pulse 66 07/23/2023 2:16 PM ASBESTOS HANDLER Temperature 37.1 ??C (98.7 ??F) 07/16/2021 3:08 PM CS T Respiratory Rate 16 03/24/2021 5:24 PM CDT Oxygen Saturation 99% 07/16/2021 3:08 PM ASBESTOS HANDLER Inhaled Oxygen Concentration - - Weight 65.8 kg (145 lb) 07/23/2023 2:16 PM ASBESTOS HANDLER Height 172.7 cm (5' 8) 02/24/2022 3:15 [...] AND HIV-1/HIV-2 ANTIBODIES Routine 10/06/2016 11:50 AM ASBESTOS HANDLER Screening examination for venereal disease from Last 3 Months or Most Recently Relevant to Health Maintenance Results * Hepatitis C Antibody, with Reflex (02/24/2022 4:08 PM CDT) Hepatitis C Antibody Negative (Non Reactive) Negative (Non Reactive) 02/24/2022 9:32 PM CDT [facility] Comment:Antibodies to HCV no t detected. Does not exclude the possiblity of exposure to HCV. Blood Venipuncture / Unknown 02/24/2022 4:08 PM CDT 02/24/2022 4:08 PM CDT Trupti Hauser MD LAB_1 [facility] [address] * (ABNORMAL) PAP Test (06/05/2021 9:41 AM CDT) Case Report Pap ? Case: [id number] ? Authorizing Provider: ??Lu Chambers MD ? Collected: ? 06/05/2021 0941 ? Ordering Location: ? [facility] ? Received: ?06/05/2021 1102 ? Services-INVESTIGATION MANAGER ? First Screen: ?Tequila, Elisabet P, CT (ASCP) ? Pathologist: ? Jaguar Aldridge MD ? Specimen: ?Pap Test, Routine, Cervix/Endocerv ix ? 06/18/2021 2:55 PM ASBESTOS HANDLER [facility] Pap Specimen Adequacy Satisfactory for evaluation, endocervical/tr ansformation zone component present. 06/18/2021 2:55 PM ASBESTOS HANDLER [facility] Pap Interpretation Atypical squamous cells of undetermined significance (ASC-US).(A) 06/18/2021 2:55 PM ASBESTOS HANDLER [facility] Pap Disclaimer The Pap test is a screening test designed to aid in the detection of cervical cancer and its precursor lesions. It is not a diagnostic procedure and should not be used as the sole means of detecting cervical cancer. Both false-positive and false-negative results may occur. 06/18/2021 2:55 PM ASBESTOS HANDLER [facility] Gross Description The specimen is received in SurePath fixative and properly labeled. 1 Pap-stained SurePath slide is prepared. 06/18/2021 2:55 PM ASBESTOS HANDLER [facility] Embedded Images 2:55 PM ASBESTOS HANDLER [facility] Other Specimen Type ENTIRE ENDOCERVIX / Unknown 06/05/2021 9:41 AM CDT 06/05/2021 11:02 AM CDT Comment:LMP: Patient's last menstrual period was 05/26/2021. Lu Chambers MD LAB PATHOLOGY Performing Organization Address City/[facility] Co de Phone Number [facility] [address] [place] [id number] [place] [address] * LAB HIV-1 p24 AND HIV-1/HIV-2 ANTIBODIES (10/06/2016 11:50 AM ASBESTOS HANDLER) HIV-1 p24 Ag and HIV-1/HIV-2 Ab Nonreactive Nonreactive PN SOFT 10/06/2016 11:5 0 AM ASBESTOS HANDLER 10/06/2016 4:13 PM ASBESTOS HANDLER Narrative PN SOFT - 10/06/2016 5:00 PM ASBESTOS HANDLER Performed at [facility], [address] [place] [address] CLIA number [id number] Noemy Roldan APRN, CNP LAB_1 Performing Organization Address [facility] Co de Phone Number PN SOFT [address] [place] [phone] from Last 3 Months or Most Recently Relevant to Health Maintenance Care Teams Hot Blaster Relationship Specialty [place] [address] [address] [address] PCP - General Family Practice 08/31/16
--- OUTSIDE RECORDS SUMMARY | 2024-02-28 14:31 | XMS_ITS | Clinical Summary ---
Author Organization [facility] Address [address] [facility] [place] [address] Care Team Providers Care Pediatrician Name Role Phone Elisabet Vee MD Primary Care Provider Allergies No known active allergies Medications Medication Sig Dispensed Refills Start Date End Date Status Rllknzwf-Hbs-Nq-FA ( VITAMINS PO) Active ibuprofen (ADVIL/MOTRIN) 800 [...] nasal sprayIndications:Si nusitis, unspecified chronicity, unspecified location [place] 2 sprays into both nostrils daily 16 [...] T Respiratory Rate 16 06/29/2018 8:21 AM INFECTION CONTROL RN Oxygen Saturation 99% 05/23/2019 9:35 AM CDT Inhaled Oxygen Concentration - - Weight 63.1 kg (139 lb 1.6 oz) 05/23/2019 9:35 A M CDT Height 175.3 cm (5' 9) 05/23/2019 9:35 AM CDT Body Mass Index 20.54 05/23/2019 9:35 AM CDT Plan of Treatment Not on file Care Teams Pediatrician Relationship Specialty Start Date End Date Elisabet Vee MD PCP - General Nurse Practitioner 06/21/18
== END 2024-02-25 08:00 | disposition home or self-care (01) ==
LOC: NFLDREF 02-28 14:28
PROVIDERS: PCP Obstetrics & Gynecology; Visit Provider Obstetrics & Gynecology
DX: R73.09 Other abnormal glucose (principal)
CPT/HCPCS: 82951; 82952

== ENCOUNTER 2024-03-24 08:58 | Outpatient (CLI) | payer OTHER, SELFPAY ==
--- OUTSIDE RECORDS SUMMARY | 2024-03-24 13:14 | XMS_ITS | Referral Summary ---
Author Organization [facility] Address [address] [facility] [place] [address] Care Team Providers Care Vulcan Crewmember Name Role Phone Elisabet Vee MD Primary Care Provider [phone] Allergies No known active allergies Medications Medication Sig Dispensed Refills Start Date End Date Status Nfqdzotn-Dfx-Ul-FA ( VITAMINS PO) Active ibuprofen (ADVIL/MOTRIN) 800 [...] nasal sprayIndications:Si nusitis, unspecified chronicity, unspecified location [place] 2 sprays into both nostrils daily 16 [...] T Respiratory Rate 16 06/29/2018 8:21 AM EMERGENCY MEDICINE PHYSICIAN Oxygen Saturation 99% 05/23/2019 9:35 AM CDT Inhaled Oxygen Concentration - - Weight 63.1 kg (139 lb 1.6 oz) 05/23/2019 9:35 A M CDT Height 175.3 cm (5' 9) 05/23/2019 9:35 AM CDT Body Mass Index 20.54 05/23/2019 9:35 AM CDT Plan of Treatment Not on file Care Teams Vulcan Crewmember Relationship Specialty Start Date End Date Elisabet Vee MD PCP - General Nurse Practitioner 06/21/18
--- OUTSIDE RECORDS SUMMARY | 2024-03-24 13:14 | XMS_ITS | Clinical Summary ---
Author Organization [facility] Address [address] [place] [address] Care Team Providers Care Manufacturing Specialist Name Role Phone Trupti Hauser MD Primary [...] on cytologic smear of cervix (ASC-US) 06/20/2021 Overview (06/20/2021): [facility] Review: History: 09/2016: NILM 05/2021: ASCUS, [...] 03/15/2017 06/22/2017 Cardiac dysrhythmia 04/06/2007 09/14/19 17 Overview (03/31/2017): Bradycardia Constipation 04/06/2007 09/14/2016 Overview (03/31/2017): Constipation NOS Bulimia nervosa 04/04/2007 09/14/2016 Immunizations Name Administration Dates Next Due DTaP 03/24/1995, 2,04/19/1990, 990,1989 Flu Vac (3+ yrs) 07/26/2008 HepB Ped/Adol (0-18 yrs) 04/13/2002,03/31/2001,0 01/14/2001 Hib (PRP-D) 02/07/1991,10/14/1990,07/19/1990 Influenza IIV4 (Quadrivalent ) 0.5mL (81721) 05/27/2021,04/13/2018,05/10/2017, 016 Luis COVID-19 Vaccine 08/21/2021 MCV4 [...] Comments Blood Pressure 126/82 07/23/2023 2:16 PM RUBBER CURER Pulse 66 07/23/2023 2:16 PM RUBBER CURER Temperature 37.1 ??C (98.7 ??F) 07/16/2021 3:08 PM CS T Respiratory Rate 16 03/24/2021 5:24 PM CDT Oxygen Saturation 99% 07/16/2021 3:08 PM RUBBER CURER Inhaled Oxygen Concentration - - Weight 65.8 kg (145 lb) 07/23/2023 2:16 PM RUBBER CURER Height 172.7 cm (5' 8) 02/24/2022 3:15 [...] AND HIV-1/HIV-2 ANTIBODIES Routine 10/06/2016 11:50 AM RUBBER CURER Screening examination for venereal disease from Last 3 Months or Most Recently Relevant to Health Maintenance Results * Hepatitis C Antibody, with Reflex (02/24/2022 4:08 PM CDT) Hepatitis C Antibody Negative (Non Reactive) Negative (Non Reactive) 02/24/2022 9:32 PM CDT [facility] Comment:Antibodies to HCV no t detected. Does not exclude the possiblity of exposure to HCV. Blood Venipuncture / Unknown 02/24/2022 4:08 PM CDT 02/24/2022 4:08 PM CDT Trupti Hauser MD LAB_1 [facility] [address] [place], [place] [address] * (ABNORMAL) PAP Test (06/05/2021 9:41 AM CDT) Case Report Pap ? Case: [id number] ? Authorizing Provider: ??Lu Chambers MD ? Collected: ? 06/05/2021 0941 ? Ordering Location: ? [facility] ? Received: ?06/05/2021 1102 ? Services-PATCH DRILLER ? First Screen: ?Tequila, Elisabet P, CT (ASCP) ? Pathologist: ? Jaguar Aldridge MD ? Specimen: ?Pap Test, Routine, Cervix/Endocerv ix ? 06/18/2021 2:55 PM RUBBER CURER [facility] Pap Specimen Adequacy Satisfactory for evaluation, endocervical/tr ansformation zone component present. 06/18/2021 2:55 PM RUBBER CURER [facility] Pap Interpretation Atypical squamous cells of undetermined significance (ASC-US).(A) 06/18/2021 2:55 PM RUBBER CURER [facility] Pap Disclaimer The Pap test is a screening test designed to aid in the detection of cervical cancer and its precursor lesions. It is not a diagnostic procedure and should not be used as the sole means of detecting cervical cancer. Both false-positive and false-negative results may occur. 06/18/2021 2:55 PM RUBBER CURER [facility] Gross Description The specimen is received in SurePath fixative and properly labeled. 1 Pap-stained SurePath slide is prepared. 06/18/2021 2:55 PM RUBBER CURER [facility] Embedded Images 2:55 PM RUBBER CURER [facility] Other Specimen Type ENTIRE ENDOCERVIX / Unknown 06/05/2021 9:41 AM CDT 06/05/2021 11:02 AM CDT Comment:LMP: Patient's last menstrual period was 05/26/2021. Lu Chambers MD LAB PATHOLOGY Performing Organization Address [facility] Co de Phone Number [address] * LAB HIV-1 p24 AND HIV-1/HIV-2 ANTIBODIES (10/06/2016 11:50 AM RUBBER CURER) HIV-1 p24 Ag and HIV-1/HIV-2 Ab Nonreactive Nonreactive PN SOFT 10/06/2016 11:5 0 AM RUBBER CURER 10/06/2016 4:13 PM RUBBER CURER Narrative PN SOFT - 10/06/2016 5:00 PM RUBBER CURER [place] [address] CLIA number [id number] Noemy Roldan APRN, DANIELLE LAB_1 Performing Organization Address [facility]/ZIP Co de Phone Number SOFT [address] [place] [address] from Last 3 Months or Most Recently Relevant to Health Maintenance Care Teams Manufacturing Specialist Relationship Specialty Start [place] [address] [address] [place] [address] PCP - General Family Practice 08/31/16
--- OUTSIDE RECORDS SUMMARY | 2024-03-24 13:14 | XMS_ITS | Clinical Summary ---
Author Organization [place] Address [address] [place] [address] Care Team Providers Care Music Industry Internship Name Role Phone Elisabet Vee MD Primary Care Provider [phone] Allergies No known active allergies Medications Medication Sig Dispensed Refills Start Date End Date Status Awbqpwbl-Kdu-Yk-FA ( VITAMINS PO) Active ibuprofen (ADVIL/MOTRIN) 800 [...] nasal sprayIndications:Si nusitis, unspecified chronicity, unspecified location [place] 2 sprays into both nostrils daily 16 [...] T Respiratory Rate 16 06/29/2018 8:21 AM INTERN PRODUCT MARKETING MANAGER Oxygen Saturation 99% 05/23/2019 9:35 AM CDT Inhaled Oxygen Concentration - - Weight 63.1 kg (139 lb 1.6 oz) 05/23/2019 9:35 A M CDT Height 175.3 cm (5' 9) 05/23/2019 9:35 AM CDT Body Mass Index 20.54 05/23/2019 9:35 AM CDT Plan of Treatment Not on file Care Teams Music Industry Internship Relationship Specialty Start Date End Date Elisabet Vee MD PCP - General Nurse Practitioner 06/21/18
--- OUTSIDE RECORDS SUMMARY | 2024-03-24 13:15 | XMS_ITS | Continuity of Care Document ---
Author Name [facility] Organization [facility] Care Team Providers Care Demonstrator Sales Name Role Phone [facility] Unavailable Unavailable Problems Combined list of problems from Department of Defense and Veterans Affairs facilities. It does not include entries that were removed or entered in error. Problem Status Onset Date Problem Type Date of Resolution Comments Source visit for: contraceptive surveillance Inactive 07/12/2012 Condition [facility] Guidance: Concerns About Unsafe Sexual Practices Inactive 07/12/2012 Condition DoD Need For Vaccination Against Influenza Inactive Condition [facility] visit for: screening exam pulmonary tuberculosis Inactive Condition [facility] visit for: screening exam viral disease Inactive Condition [facility] Test Inactive Condition [facility] visit for: services physical Active Condition [facility] visit for: ears / hearing exam Active Condition [facility] assessment of patient condition work-related Active Condition [facility] Medications Combined list of outpatient medications from Department of [employer] and Veterans Affairs facilities.Medications provided include 1) [...] Site Reaction Lot Number CVX Code 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 Comments Source SARS-COV-2 (COVID-19) vaccine, vector non-replicati ng, recombinant spike protein-Ad26, preservative free, 0.5 mL 1 2021 [id number] Unknown (UNK) comple t ed SARS-COV- 2 (COVID-19 ) vaccine, vector non-repli cating, recombina nt spike protein-A d26, preservat jennifer free, 0.5 mL DoD tetanus-dipht h toxoids (Td) adult/adol 2020 Right Arm [id number] GlaxoSmithKli ne complet ed tetanus-d iphth toxoids (Td) adult/ado l 11/13/20 Given Ambulat ory Pharmac y tetanus and diphtheria toxoids, adsorbed, preservative free, for adult use (2 Lf of tetanus toxoid and 2 Lf of diphtheria toxoid) 1 2020 MARIO MCCORMACK T [id number] [facility] (B) complet ed tetanus and diphtheri a toxoids, adsorbed, preservat jennifer free, for adult use (2 Lf of tetanus toxoid and 2 Lf of diphtheri a toxoid) DoD influenza, injectable, quadrivalent- pf 2018 [id number] 150 Seqirus complet ed influenza , injectabl e, quadrival ent-pf 06/23/19 Given Ambulat ory Pharmac y Influenza, injectable, quadrivalent, preservative free 1 2018 [id number] 150 Seqirus (SEQ) complet ed Influenza , injectabl e, quadrival ent, preservat jennifer free DoD influenza, seasonal, injectable-pf 2016 [id number] 140 GlaxoSmithKli ne complet ed influenza , seasonal, injectabl e-pf 05/10/17 Given Ambulat ory Pharmac y Influenza, seasonal, injectable, preservative free 1 2016 [id number] 140 [facility] (SKB) complet ed Influenza , seasonal, injectabl e, preservat jennifer free DoD influenza, seasonal, injectable 2015 [id number] 141 Unknown complet ed influenza , seasonal, injectabl e 06/27/16 Given Ambulat ory Pharmac y Influenza, seasonal, injectable 1 2015 [id number] 141 Unknown (UNK) comple t ed Influenza , seasonal, injectabl e DoD influenza, injectable, quadrivalent- pf 2014 [id number] 150 GlaxoSmithKli ne complet ed influenza , injectabl e, quadrival ent-pf 06/29/15 Given Ambulat ory Pharmac y Influenza, injectable, quadrivalent, preservative free 1 2014 [id number] 150 SmithKline (SKB) complet ed Influenza , injectabl e, quadrival ent, preservat jennifer free DoD measles/mumps /rubella virus vaccine 2014 [id number] 03 Merck & Company Inc complet ed measles/m umps/rube lla virus vaccine 02/18/15 Given Ambulat ory Pharmac y measles, mumps and rubella virus vaccine 2 2014 [id number] 03 [employer] (MSD) complet ed measles, mumps and rubella virus vaccine DoD Influenza, injectable, MDCK-pf 2013 [id number] 153 Novartis Pharmaceutica ls complet ed Influenza , injectabl e, MDCK-pf 04/26/14 Given Ambulat ory Pharmac y Influenza, injectable, Madin Perry Canine Kidney, preservative free 1 2013 [id number] 153 Novartis FromUstica N4MD Ha. (NOV) complet ed Influenza , injectabl e, Madin Kassie Canine Kidney, preservat jennifer free DoD Influenza, injectable, MDCK-pf 2012 [id number] 153 CSL Behring complet ed Influenza , injectabl e, MDCK-pf 04/22/13 Given Ambulat ory Pharmac y Influenza, injectable, Madin Perry Canine Kidney, preservative free 1 2012 [id number] 153 [facility] P[employer]Cross[employer] Inc. (CSL) complet ed Influenza , injectabl e, Madin Kassie Canine Kidney, preservat jennifer free DoD tuberculin purified protein derivative 2011 [id number] 96 sanofi pasteur complet ed tuberculi n purified protein derivativ e 05/09/12 Given Ambulat ory Pharmac y influenza virus vaccine, live 2011 [id number] 111 Hoverinkmmune Inc comple t ed influenza virus vaccine, live 05/09/12 Given Ambulat ory Pharmac y influenza virus vaccine, live, attenuated, for intranasal use 1 2011 [id number] 111 Med[employer]mon[employer] Inc. (MED) complet ed influenza virus vaccine, live, attenuate d, for intranasa l use DoD hepatitis A-hepatitis B vaccine 2011 UNK 104 Unknown complet ed hepatitis A-hepatit is B vaccine 01/17/12 Given Ambulat ory Pharmac y hepatitis A and hepatitis B vaccine 3 2011 UNK 104 Unknown (UNK) comple t ed hepatitis A and hepatitis B vaccine DoD influenza, seasonal, injectable-pf 2010 [id number] 140 CSL Behring complet ed influenza , seasonal, injectabl e-pf 05/23/11 Given Ambulat ory Pharmac y Influenza, seasonal, injectable, preservative free 1 2010 [id number] 140 CS [employer] Inc. (CSL) complet ed Influenza , seasonal, injectabl e, preservat jennifer free DoD hepatitis A-hepatitis B vaccine 2008 [id number] 104 GlaxoSmithKli ne complet ed hepatitis A-hepatit is B vaccine 02/01/09 Given Ambulat ory Pharmac y hepatitis A and hepatitis B vaccine 2 2008 [id number] 104 Smithine (SKB) complet ed hepatitis A and hepatitis B vaccine DoD tuberculin purified protein derivative 2008 [id number] 96 sanofi pasteur complet ed tuberculi n purified protein derivativ e 12/28/08 Given Ambulat ory Pharmac y tetanus, diphtheria, acellular pertu is 2008 [id number] 115 GlaxoSmithKli ne complet ed tetanus, diphtheri a, acellular pertussis 12/28/08 Given Ambulat ory Pharmac y meningococcal A,C,Y,W-135 (MCV4P) 2008 [id number] 114 sanofi pasteur complet ed meningoco ccal [...] diphtheria toxoid conjugate vaccine (MCV4P) 1 2008 [id number] 114 Sanofi Pasteur (PMC) complet ed meningoco ccal polysacch aride (groups A, C, Y and W-135) diphtheri a toxoid conjugate vaccine (MCV4P) DoD tetanus toxoid, reduced diphtheria toxoid, and acellular pertu is vaccine, adsorbed 1 2008 [id number] 115 SmithKline (SKB) complet ed tetanus [...] [employer](IEP Hearing Conservat ion) OUTPATIENT [id number] DEREK CAMACHO 12/26 Released w/o Limitations [employer](I EP Hearing Conserv ation) [employer](IEP Optometry ) OUTPATIENT [id number] HALEY MURPHY 01/29 Released w/o Limitations [employer](I EP Optomet ry) [facility] Kym IRR/SRP) OUTPATIENT [id number] Notes Entered by: JUAN J CHOI RA 09 May 2012 0839 ------- ------- ------- ------- -- LVL1/OB EPI PRESCOTT 05/09 Released w/o Limitations [employer](M C IRR/SRP ) [facility] C Gynecolog y) OUTPATIENT [id number] [facility] [id number] KIN NAVARRETE 07/12 Released w/o Limitations [facility] Gynecol ogy) [facility]) OUTPATIENT [id number]: ST LI MAHER 06 Mar 2019 1453 ------- ------- ------- ------- -- EVELIN LOPEZ 03/06 Released w/o Limitations [facility]) [facility]) OUTPATIENT [id number] Notes Entered by: CARMEN CHAUDHARI 07 Mar 2019 1525 ------- ------- ------- ------- -- EVELIN LOPEZ 03/07 Released w/o Limitations [facility]) [facility] Deploymen t Clinic) OUTPATIENT [id number] Notes Entered by: Jameson MEDLEY November717 ------- ------- ------- ------- -- KAMRYN FULLER 11/13 Released w/o Limitations [facility](SR P Deploym ent Clinic) [facility](SR[facility] Hearing Program) OUTPATIENT [id number] Notes Entered by: BERTHA KENNEDY 08 Oct [id number] ------- ------- ------- ------- -- CAROLINE TOTH 10/08 Released w/o Limitations [facility](SR [facility] Hearing Program ) [facility] De[facility] t [facility]) OUTPATIENT [id number] Notes Entered by: ANDRE LYN 08 Oct [id number] ------- ------- ------- ------- -- DEMEULA SONG 10/08 Released w/o Limitations [facility](SR P Deploym ent Clinic) [facility](SR[facility] Deploymen t Clinic) OUTPATIENT [id number] MARIKA WOLF 10/09 Released w/o Limitations [facility](SR P Deploym ent Clinic) [place] [place]) TELE CONSULT [id number] Notes Entered by: PAT BERRY 29 Oct 2021 1039 ------- ------- ------- ------- -- [facility] Poly-Ph armacy 21.12 Cohort #5 DANYEL ELIAS Homer 10/29 [place], [place]([facility] [place]) Procedures Combined list of: 1) Procedures from Department of Veterans Affairs facilities going [facility], not all VA non-surgical procedures are included; 2) All procedures from the Department of Defense facilities. Procedure Procedure Type Code Date Perfomer Comments Sour e ADMINISTRATION OF PATIENT-FOCUSED HEALTH RISK ASSESSMENT INSTRUMENT (EG, HEALTH HAZARD APPRAISAL) WITH SCORING AND DOCUMENTATION, PER STANDARDIZED INSTRUMENT [facility] PURE TONE AUDIOMETRY (THRESHOLD), AUTOMATED; AIR ONLY [facility] BRIEF EMOTIONAL/BEHAVIO RAL ASSESSMENT (EG, DEPRESSION INVENTORY, ATTENTION-DEFICIT /HYPERACTIVITY DISORDER [ADHD] SCALE), WITH SCORING AND DOCUMENTATION, PER STANDARDIZED INSTRUMENT [facility] SCREENING TEST OF VISUAL ACUITY, QUANTITATIVE, BILATERAL [facility] NUTRITION CLASSES, NON-PHYSICIAN PROVIDER, PER SESSION 019 [facility] SKIN TEST; TUBERCULOSIS, INTRADERMAL [facility] VIS FUNCT SCREEN,AUTOMAT/SE MA-AUTOMAT BILAT QUANT DETERM VISUAL ACUITY,OCULAR ALIGN,COLOR VISION,PSEUDOISOC HROMAT PLATES,& FIELD VIS (MAY INC ALL/SOME SCRN DETERM FOR CONTRAST SENSITIV,VIS UND GLARE) [facility] AUDIOMETRIC TESTING OF GROUPS [facility] Skin Test Anergy Tuberculin Intradermal Skin Test Anergy Tuberculin Intradermal 87498 EPI POOLE DoD Immunization Administration By Injection, Each Additional Vaccine EPI POOLE [facility] Influenza Virus Vaccine Intranasal Live Attenuated EPI POOLE [facility] Immunization Administration By Injection, One Vaccine Immunization Administration By Injection, One Vaccine 17040 EPI POOLE [facility] Visual Function Screening Visual Function Screening [id number] HALEY MURPHY [facility] Physician Supervised Group Educational Services JANICEJACE KOLBON Gregorio [facility] Special Physician Services Analysis Of Computerized Data Special Physician Services Analysis Of Computerized Data 95359 DEREK CAMACHO [facility] Audiometry Group Testing Audiometry Group Testing [address] [facility] Ear mold/insert, not disposable, any type [place] [facility] Ear Protector Attenuation Measurements Ear Protector Attenuation Measurements [address] [place] [facility] Threshold Audiogram (Pure Tone) Threshold Audiogram (Pure Tone) [address] [place] [facility] Td Vaccine Preservative Free, Adsorbed Td Vaccine Preservative Free, Adsorbed 32429 KAMRYN ARANGO Td (adult), adsorbed; Series #: 1; 0.5 mL; IM; Right Arm; Mfg: [employer]cheq; Lot: [id number]; VIS given (Jae: 11/08/2019). [facility] Immunization Administration By Injection, One Vaccine Immunization Administration By Injection, One Vaccine 03031 KAMRYN ARANGO [facility] Preventive Medicine Administration Of Health Risk Questionnaire Patient-Focused Preventive Medicine Administration Of Health Risk Questionnaire Patient-Focused 78277 MYLA HOLT [facility] Psychometric Emotional / Behavioral A e ment Psychometric Emotional / Behavioral Assessment 13113 [facility] Threshold Audiogram (Pure Tone) Automated Threshold Audiogram (Pure Tone) Automated 0208T CAROLINE SPARKS [facility] Nutrition cla es, non-physician provider, per se EVELIN Sheets [facility] No data available for this section Ambulato [...] Plan No data available for this section 03/24/2024 Ambulatory Pharmacy Functional Status Combined list of recent functional and cognitive assessments recorded at Department of Defense and Veterans Affairs (VA).VA Functional Terry Measurement (FIM) Scale: 1 = Total Assistance (Subject = 0% +), 2 = Maximal Assistance (Subject = 25% +), 3 = Moderate Assistance (Subject = 50% +), 4 = Minimal Assistance (Subject = 75% +), 5 = Supervision, 6 = Modified Terry (Device), 7 = Complete Terry (Timely, Safely). Assessment Date/Time Source Assessment Type Assessment Skill Assessment Score Assessment Details No data available for this section
== END 2024-03-24 08:59 | disposition home or self-care (01) ==
LOC: NFLDREF 13:08
PROVIDERS: Visit Provider Obstetrics & Gynecology
DX: Z34.83 Encounter for supervision of other normal pregnancy, third trimester (principal)
CPT/HCPCS: 82728

== ENCOUNTER 2024-04-07 09:00 | Outpatient (CLI) | payer OTHER, SELFPAY ==
--- OUTSIDE RECORDS SUMMARY | 2024-04-09 06:33 | XMS_ITS | Continuity of Care Document ---
Author Name [facility] Organization [facility] Care Team Providers Care Fiberglass Boat Assembly Supervisor Name Role Phone [facility] Unavailable Unavailable Problems Combined list of problems from Department of Defense and Veterans Affairs facilities. It does not include entries that were removed or entered in error. Problem Status Onset Date Problem Type Date of Resolution Comments Source visit for: contraceptive surveillance Inactive 07/12/[address] [facility] Guidance: Concerns About Unsafe Sexual Practices Inactive 07/12/2012 Condition DoD Need For Vaccination Against Influenza Inactive Condition [facility] visit for: screening exam pulmonary tuberculosis Inactive Condition [facility] visit for: screening exam viral disease Inactive Condition [facility] Test Inactive Condition [facility] visit for: services physical Active Condition [facility] visit for: ears / hearing exam Active Condition [facility] assessment of patient condition work-related Active Condition [facility] Medications Combined list of outpatient medications from Department of [employer] and Veterans Affairs facilities.Medications provided include 1) [...] Site Reaction Lot Number CVX Code Drug Instructor Of Sociology Status Comments Source SARS-COV-2 (COVID-19) vaccine, vector non-replicati ng, recombinant spike protein-Ad26, preservative free, 0.5 mL 1 2021 [id number] Unknown (UNK) comple t ed SARS-COV- 2 (COVID-19 ) vaccine, vector non-repli cating, recombina nt spike protein-A d26, preservat jennifer free, 0.5 mL DoD tetanus-dipht h toxoids (Td) adult/adol 2020 Right Arm [id number] GlaxoSmithKli ne complet ed tetanus-d iphth toxoids (Td) adult/ado l 11/13/20 Given Ambulat ory Pharmac y tetanus and diphtheria toxoids, adsorbed, preservative free, for adult use (2 Lf of tetanus toxoid and 2 Lf of diphtheria toxoid) 1 2020 MARIO MCCORMACK T [id number] [facility] (B) complet ed tetanus and diphtheri a toxoids, adsorbed, preservat jennifer free, for adult use (2 Lf of tetanus toxoid and 2 Lf of diphtheri a toxoid) DoD influenza, injectable, quadrivalent- pf 2018 [id number] 150 Seqirus complet ed influenza , injectabl e, quadrival ent-pf 06/23/19 Given Ambulat ory Pharmac y Influenza, injectable, quadrivalent, preservative free 1 2018 [id number] 150 Seqirus (SEQ) complet ed Influenza , injectabl e, quadrival ent, preservat jennifer free DoD influenza, seasonal, injectable-pf 2016 [id number] 140 GlaxoSmithKli ne complet ed influenza , seasonal, injectabl e-pf 05/10/17 Given Ambulat ory Pharmac y Influenza, seasonal, injectable, preservative free 1 2016 [id number] 140 [facility] (SKB) complet ed Influenza , seasonal, injectabl e, preservat jennifer free DoD influenza, seasonal, injectable 2015 [id number] 141 Unknown complet ed influenza , seasonal, injectabl e 06/27/16 Given Ambulat ory Pharmac y Influenza, seasonal, injectable 1 2015 [id number] 141 Unknown (UNK) comple t ed Influenza , seasonal, injectabl e DoD influenza, injectable, quadrivalent- pf 2014 [id number] 150 GlaxoSmithKli ne complet ed influenza , injectabl e, quadrival ent-pf 06/29/15 Given Ambulat ory Pharmac y Influenza, injectable, quadrivalent, preservative free 1 2014 [id number] 150 SmithKline (SKB) complet ed Influenza , injectabl e, quadrival ent, preservat jennifer free DoD measles/mumps /rubella virus vaccine 2014 [id number] 03 Merck & Company Inc complet ed measles/m umps/rube lla virus vaccine 02/18/15 Given Ambulat ory Pharmac y measles, mumps and rubella virus vaccine 2 2014 [id number] 03 [employer] (MSD) complet ed measles, mumps and rubella virus vaccine DoD Influenza, injectable, MDCK-pf 2013 [id number] 153 Novartis Pharmaceutica ls complet ed Influenza , injectabl e, MDCK-pf 04/26/14 Given Ambulat ory Pharmac y Influenza, injectable, Madin [place] Canine Kidney, preservative free 1 2013 [id number] 153 Novartis ACACIA [employer] (NOV) complet ed Influenza , injectabl e, Madin Kassie Canine Kidney, preservat jennifer free DoD Influenza, injectable, MDCK-pf 2012 [id number] 153 CSL Behring complet ed Influenza , injectabl e, MDCK-pf 04/22/13 Given Ambulat ory Pharmac y Influenza, injectable, Madin [place]assie Canine Kidney, preservative free 1 2012 [id number] 153 [facility] Invent[employer]Sav[employer] Inc. (CSL) complet ed Influenza , injectabl e, Madin [place] Canine Kidney, preservat jennifer free DoD tuberculin purified protein derivative 2011 [id number] 96 sanofi pasteur complet ed tuberculi n purified protein derivativ e 05/09/12 Given Ambulat ory Pharmac y influenza virus vaccine, live 2011 [id number] 111 B[employer] Inc comple t ed influenza virus vaccine, live 05/09/12 Given Ambulat ory Pharmac y influenza virus vaccine, live, attenuated, for intranasal use 1 2011 [id number] 111 Med[employer]icRate.Me[employer] Inc. (MED) complet ed influenza virus vaccine, live, attenuate d, for intranasa l use DoD hepatitis A-hepatitis B vaccine 2011 UNK 104 Unknown complet ed hepatitis A-hepatit is B vaccine 01/17/12 Given Ambulat ory Pharmac y hepatitis A and hepatitis B vaccine 3 2011 UNK 104 Unknown (UNK) comple t ed hepatitis A and hepatitis B vaccine DoD influenza, seasonal, injectable-pf 2010 [id number] 140 CSL Behring complet ed influenza , seasonal, injectabl e-pf 05/23/11 Given Ambulat ory Pharmac y Influenza, seasonal, injectable, preservative free 1 2010 [id number] 140 CS [employer] World[employer] Inc. (CSL) complet ed Influenza , seasonal, injectabl e, preservat jennifer free DoD hepatitis A-hepatitis B vaccine 2008 [id number] 104 GlaxoSmithKli ne complet ed hepatitis A-hepatit is B vaccine 02/01/09 Given Ambulat ory Pharmac y hepatitis A and hepatitis B vaccine 2 2008 [id number] 104 Smithine (SKB) complet ed hepatitis A and hepatitis B vaccine DoD tuberculin purified protein derivative 2008 [id number] 96 sanofi pasteur complet ed tuberculi n purified protein derivativ e 12/28/08 Given Ambulat ory Pharmac y tetanus, diphtheria, acellular pertu is 2008 [id number] 115 GlaxoSmithKli ne complet ed tetanus, diphtheri a, acellular pertussis 12/28/08 Given Ambulat ory Pharmac y meningococcal A,C,Y,W-135 (MCV4P) 2008 [id number] 114 sanofi pasteur complet ed meningoco ccal [...] diphtheria toxoid conjugate vaccine (MCV4P) 1 2008 [id number] 114 Sanofi Pasteur (PMC) complet ed meningoco ccal polysacch aride (groups A, C, Y and W-135) diphtheri a toxoid conjugate vaccine (MCV4P) DoD tetanus toxoid, reduced diphtheria toxoid, and acellular pertu is vaccine, adsorbed 1 2008 [id number] 115 SmithKline (SKB) complet ed tetanus [...] [employer](IEP Hearing Conservat ion) OUTPATIENT [id number] DEREK CAMACHO 12/26 Released w/o Limitations [employer](I EP Hearing Conserv ation) [employer](IEP Optometry ) OUTPATIENT [id number] HALEY UMRPHY 01/29 Released w/o Limitations [employer](I EP Optomet ry) [facility] Medical Group([facility] Kym IRR/SRP) OUTPATIENT [id number] Notes Entered by: JUAN J CHOI RA 09 May 2012 0839 ------- ------- ------- ------- -- LVL1/OB EPI PRESCOTT 05/09 Released w/o Limitations [employer](M C IRR/SRP ) [facility] Medical Group([facility] C Gynecolog y) OUTPATIENT [id number] [facility] [id number] KIN NAVARRETE 07/12 Released w/o Limitations [facility] Medical Group([facility] Gynecol ogy) [facility]) OUTPATIENT [id number] Notes Entered by: ST LI MAHER 06 Mar 2019 1453 ------- ------- ------- ------- -- EVELIN LOPEZ 03/06 Released w/o Limitations [facility]) [facility]) OUTPATIENT [id number] Notes Entered by: CARMEN CHAUDHARI 07 Mar 2019 1525 ------- ------- ------- ------- -- EVELIN LOPEZ 03/07 Released w/o Limitations [facility] Medical [facility](A [facility]) [facility] Deploymen t Clinic) OUTPATIENT [id number] Notes Entered by: Jameson MEDLEY November717 ------- ------- ------- ------- -- KAMRYN FULLER 11/13 Released w/o Limitations [facility](SR P Deploym ent Clinic) [facility] Hearing Program) OUTPATIENT [id number] Notes Entered by: BERTHA KENNEDY 08 Oct [id number] ------- ------- ------- ------- -- CAROLINE TOTH 10/08 Released w/o Limitations [facility](SR P Hearing Program ) [facility] De[facility] t Clinic) OUTPATIENT [id number] Notes Entered by: ANDRE LYN 08 Oct [id number] ------- ------- ------- ------- -- EULA ESPITIA 10/08 Released w/o Limitations [facility](SR [facility] Deploym ent Clinic) [facility] Deploymen t Clinic) OUTPATIENT [id number] MARIKA WOLF 10/09 Released w/o Limitations [facility](SR P Deploym ent Clinic) [place]([facility] [address] [place]) TELE CONSULT [id number] Notes Entered by: PAT BERRY 29 Oct 2021 1039 ------- ------- ------- ------- -- TPR Poly-Ph armacy 21.12 Cohort #5 DANYEL ELIAS [place] 10/29 [place], [place]([address]) Procedures Combined list of: 1) Procedures from Department of Veterans Affairs facilities going [facility], not all VA non-surgical procedures are included; 2) All procedures from the Department of Defense facilities. Procedure Procedure Type Code Date Perfomer Comments Sourc e No data available for this section Ambulato ry Pharmacy NUTRITION CLASSES, NON-PHYSICIAN PROVIDER, PER SESSION 019 [facility] SKIN TEST; TUBERCULOSIS, INTRADERMAL 012 [facility] VIS FUNCT SCREEN,AUTOMAT/SE PA-AUTOMAT BILAT QUANT DETERM VISUAL ACUITY,OCULAR ALIGN,COLOR VISION,PSEUDOISOC HROMAT PLATES,& FIELD VIS (MAY INC ALL/SOME SCRN DETERM FOR CONTRAST SENSITIV,VIS UND GLARE) 009 [facility] AUDIOMETRIC TESTING OF GROUPS 009 [facility] ADMINISTRATION OF PATIENT-FOCUSED HEALTH RISK ASSESSMENT INSTRUMENT (EG, HEALTH HAZARD APPRAISAL) WITH SCORING AND DOCUMENTATION, PER STANDARDIZED INSTRUMENT [facility] PURE TONE AUDIOMETRY (THRESHOLD), AUTOMATED; AIR ONLY [facility] BRIEF EMOTIONAL/BEHAVIO RAL ASSESSMENT (EG, DEPRESSION INVENTORY, ATTENTION-DEFICIT /HYPERACTIVITY DISORDER [ADHD] SCALE), WITH SCORING AND DOCUMENTATION, PER STANDARDIZED INSTRUMENT [facility] SCREENING TEST OF VISUAL ACUITY, QUANTITATIVE, BILATERAL 021 [facility] Skin Test Anergy Tuberculin Intradermal Skin Test Anergy Tuberculin Intradermal [address] [facility] Immunization Administration By Injection, Each Additional Vaccine EPI POOLE [facility] Influenza Virus Vaccine Intranasal Live Attenuated EPI POOLE [facility] Immunization Administration By Injection, One Vaccine Immunization Administration By Injection, One Vaccine [address] [facility] Visual Function Screening Visual Function Screening [address] [facility] Physician Supervised Group Educational Services DEREK CAMACHO [facility] Special Physician Services Analysis Of Computerized Data Special Physician Services Analysis Of Computerized Data [address] [facility] Audiometry Group Testing Audiometry Group Testing [address] [facility] Ear mold/insert, not disposable, any type JANICEDEREK KOLB [facility] Ear Protector Attenuation Measurements Ear Protector Attenuation Measurements [address] [facility] Threshold Audiogram (Pure Tone) Threshold Audiogram (Pure Tone) [address] [facility] Td Vaccine Preservative Free, Adsorbed Td Vaccine Preservative Free, Adsorbed 86000 KAMRYN ARANGO Td (adult), adsorbed; Series #: 1; 0.5 mL; IM; Right Arm; Mfg: Pergunterine; Lot: [id number]; VIS given (Jae: 11/08/2019). [facility] Immunization Administration By Injection, One Vaccine Immunization Administration By Injection, One Vaccine [address] [facility] Preventive Medicine Administration Of Health Risk Questionnaire Patient-Focused Preventive Medicine Administration Of Health Risk Questionnaire Patient-Focused [address] [facility] Psychometric Emotional / Behavioral A e ment Psychometric Emotional / Behavioral Assessment [address] [facility] Threshold Audiogram (Pure Tone) Automated Threshold Audiogram (Pure Tone) Automated 0208T CAROLINE SPARKS [facility] Nutrition cla es, non-physician provider, per se EVELIN Sheets [facility] Social History Combined list of [...] Plan No data available for this section 04/09/2024 Ambulatory Pharmacy Functional Status Combined list of recent functional and cognitive assessments recorded at Department of Defense and Veterans Affairs (VA).VA Functional [place] Measurement (FIM) Scale: 1 = Total Assistance (Subject = 0% +), 2 = Maximal Assistance (Subject = 25% +), 3 = Moderate Assistance (Subject = 50% +), 4 = Minimal Assistance (Subject = 75% +), 5 = Supervision, 6 = Modified [place] (Device), 7 = Complete [place] (Timely, Safely). Assessment Date/Time Source Assessment Type Assessment Skill Assessment Score Assessment Details No data available for this section
--- OUTSIDE RECORDS SUMMARY | 2024-04-09 06:33 | XMS_ITS | Referral Summary ---
Author Organization [place] Address [address] [facility] [place] [address] Care Team Providers Care Retail Greeting Card Merchandiser Name Role Phone Elisabet Vee MD Primary Care Provider [phone] Allergies No known active allergies Medications Medication Sig Dispensed Refills Start Date End Date Status Zfirpgbt-Kat-Qw-FA ( VITAMINS PO) Active ibuprofen (ADVIL/MOTRIN) 800 [...] nasal sprayIndications:Si nusitis, unspecified chronicity, unspecified location [place] 2 sprays into both nostrils daily 16 [...] T Respiratory Rate 16 06/29/2018 8:21 AM MANAGER OF REVENUE Oxygen Saturation 99% 05/23/2019 9:35 AM CDT Inhaled Oxygen Concentration - - Weight 63.1 kg (139 lb 1.6 oz) 05/23/2019 9:35 A M CDT Height 175.3 cm (5' 9) 05/23/2019 9:35 AM CDT Body Mass Index 20.54 05/23/2019 9:35 AM CDT Plan of Treatment Not on file Care Teams Retail Greeting Card Merchandiser Relationship Specialty Start Date End Date Elisabet Vee MD PCP - General Nurse Practitioner 06/21/18
--- OUTSIDE RECORDS SUMMARY | 2024-04-09 06:33 | XMS_ITS | Clinical Summary ---
Author Organization [facility] Address [address] [facility] [place] [address] Care Team Providers Care Telegraph Mechanic Name Role Phone Elisabet Vee MD Primary Care Provider [phone] Allergies No known active allergies Medications Medication Sig Dispensed Refills Start Date End Date Status Mlntgphm-Bki-Ml-FA ( VITAMINS PO) Active ibuprofen (ADVIL/MOTRIN) 800 [...] nasal sprayIndications:Si nusitis, unspecified chronicity, unspecified location [place] 2 sprays into both nostrils daily 16 [...] T Respiratory Rate 16 06/29/2018 8:21 AM PLANT TAXONOMY TEACHER Oxygen Saturation 99% 05/23/2019 9:35 AM CDT Inhaled Oxygen Concentration - - Weight 63.1 kg (139 lb 1.6 oz) 05/23/2019 9:35 A M CDT Height 175.3 cm (5' 9) 05/23/2019 9:35 AM CDT Body Mass Index 20.54 05/23/2019 9:35 AM CDT Plan of Treatment Not on file Care Teams Telegraph Mechanic Relationship Specialty Start Date End Date Elisabet Vee MD PCP - General Nurse Practitioner 06/21/18
--- OUTSIDE RECORDS SUMMARY | 2024-04-09 06:33 | XMS_ITS | Clinical Summary ---
Author Organization [facility] Address [address] [place] [address] Care Team Providers Care Distillery Worker Name Role Phone Trupti Hauser MD Primary [...] smear of cervix (ASC-US) 06/20/2021 Overview (06/20/2021): [facility] Review: History: 09/2016: NILM 05/2021: ASCUS, [...] (PRP-D) 02/07/1991,10/14/1990,07/19/1990 Influenza IIV4 (Quadrivalent ) 0.5mL (28903) 05/27/2021,04/13/2018,05/10/2017, 016 Luis COVID-19 Vaccine 08/21/2021 MCV4 [...] Comments Blood Pressure 126/82 07/23/2023 2:16 PM GOLF INSTRUCTOR Pulse 66 07/23/2023 2:16 PM GOLF INSTRUCTOR Temperature 37.1 ??C (98.7 ??F) 07/16/2021 3:08 PM CS T Respiratory Rate 16 03/24/2021 5:24 PM CDT Oxygen Saturation 99% 07/16/2021 3:08 PM GOLF INSTRUCTOR Inhaled Oxygen Concentration - - Weight 65.8 kg (145 lb) 07/23/2023 2:16 PM GOLF INSTRUCTOR Height 172.7 cm (5' 8) 02/24/2022 3:15 [...] AND HIV-1/HIV-2 ANTIBODIES Routine 10/06/2016 11:50 AM GOLF INSTRUCTOR Screening examination for venereal disease from Last 3 Months or Most Recently Relevant to Health Maintenance Results * Hepatitis C Antibody, with Reflex (02/24/2022 4:08 PM CDT) Hepatitis C Antibody Negative (Non Reactive) Negative (Non Reactive) 02/24/2022 9:32 PM CDT [facility] Comment:Antibodies to HCV no t detected. Does not exclude the possiblity of exposure to HCV. Blood Venipuncture / Unknown 02/24/2022 4:08 PM CDT 02/24/2022 4:08 PM CDT Trupti Hauser MD LAB_1 [facility] [address] [place], [place] [address] * (ABNORMAL) PAP Test (06/05/2021 9:41 AM CDT) Case Report Pap ? Case: [id number] ? Authorizing Provider: ??Lu Chambers MD ? Collected: ? 06/05/2021 0941 ? Ordering Location: ? [facility] ? Received: ?06/05/2021 1102 ? Services-BUILDING RENTAL SUPERINTENDENT ? First Screen: ?Tequila, Elisabet P, CT (ASCP) ? Pathologist: ? Jaguar Aldridge MD ? Specimen: ?Pap Test, Routine, Cervix/Endocerv ix ? 06/18/2021 2:55 PM GOLF INSTRUCTOR [facility] Pap Specimen Adequacy Satisfactory for evaluation, endocervical/tr ansformation zone component present. 06/18/2021 2:55 PM GOLF INSTRUCTOR [facility] Pap Interpretation Atypical squamous cells of undetermined significance (ASC-US).(A) 06/18/2021 2:55 PM GOLF INSTRUCTOR [facility] Pap Disclaimer The Pap test is a screening test designed to aid in the detection of cervical cancer and its precursor lesions. It is not a diagnostic procedure and should not be used as the sole means of detecting cervical cancer. Both false-positive and false-negative results may occur. 06/18/2021 2:55 PM GOLF INSTRUCTOR [facility] Gross Description The specimen is received in SurePath fixative and properly labeled. 1 Pap-stained SurePath slide is prepared. 06/18/2021 2:55 PM GOLF INSTRUCTOR [facility] Embedded Images 2:55 PM GOLF INSTRUCTOR [facility] Other Specimen Type ENTIRE ENDOCERVIX / Unknown 06/05/2021 9:41 AM CDT 06/05/2021 11:02 AM CDT Comment:LMP: Patient's last menstrual period was 05/26/2021. Lu Chambers MD LAB PATHOLOGY Performing Organization Address [facility] Co de Phone Number [address] * LAB HIV-1 p24 AND HIV-1/HIV-2 ANTIBODIES (10/06/2016 11:50 AM GOLF INSTRUCTOR) HIV-1 p24 Ag and HIV-1/HIV-2 Ab Nonreactive Nonreactive PN SOFT 10/06/2016 11:5 0 AM GOLF INSTRUCTOR 10/06/2016 4:13 PM GOLF INSTRUCTOR Narrative PN SOFT - 10/06/2016 5:00 PM GOLF INSTRUCTOR [place] [address] CLIA number [id number] Noemy Roldan APRN, DANIELLE LAB_1 Performing Organization Address [facility]/ZIP Co de Phone Number SOFT [address] [place] [id number] from Last 3 Months or Most Recently Relevant to Health Maintenance Care Teams Distillery Worker Relationship Specialty [place] [address] [place] [address] PCP - General Family Practice 08/31/16
== END 2024-04-07 09:01 | disposition home or self-care (01) ==
LOC: NFLDREF 04-09 06:31
PROVIDERS: Visit Provider Obstetrics & Gynecology
DX: Z34.93 Encounter for supervision of normal pregnancy, unspecified, third trimester (principal); Z3A.36 36 weeks gestation of pregnancy
CPT/HCPCS: 87081; 87653

== ENCOUNTER 2024-05-01 03:26 | Inpatient (IN) | payer OTHER, SELFPAY ==
[2024-05-01] VITALS (22 sets, daily range): BP systolic 102–126; BP diastolic 50–72; PULSE 67–90; RESP 15–16; TEMP 36.4–36.9; O2SAT 98–99
[2024-05-01] MEDS: OXYTOCIN 30 unit/500 ML in NS 30 UNIT/500 ML BAG IVPB (06:56)
[2024-05-01] MEDS: LACTATED RINGERS 1000 ML 1,000 ML 125 ML IV (06:57)
[2024-05-01 07:32] LABS: Basophils Absolute Auto 0.03 K/uL (0.00-0.30); Basophils Percent Auto 0.3 % (0.0-3.0); Eosinophils Absolute Auto 0.16 K/uL (0.00-0.50); Eosinophils Percent Auto 1.8 % (0.0-7.0); Hematocrit 35.2 % (33.0-51.0); Hemoglobin* 11.7 gm/dL (12.0-16.0); Immature Granulocytes Pct Auto 3.3 %; Lymphocytes Percent Auto 13.8 % (20-44); Mean Corpuscular HGB Conc 33 gm/dL (32-36); Mean Corpuscular Hemoglobin 32 pg (26-34); Mean Corpuscular Volume 97 fL (80-100); Monocytes Percent Auto 6.9 % (0.0-11.0); Neutrophils Percent Auto 73.9 % (42.0-72.0); Platelet Count* 194 K/uL (140-440); RDW Coefficient of Variation % 13.6 % (11.5-15.5); Red Blood Count 3.62 m/uL (4.00-5.20); White Blood Count* 9.12 K/uL (4.50-11.00)
[2024-05-01 07:41] LABS: Slide Review Reflex No
[2024-05-01] MEDS: IBUPROFEN 600 MG TABLET PO ×2 (11:52→18:54)
--- NOTE | 2024-05-01 12:08 | W.PM.LDBA ---
Subjective History of Present Illness Time Seen by Provider: 10:00 Narrative: Patient is being admitted to Labor and Delivery for SROM at 0215. She is a 33 year old at 39.5 weeks gestation. Her full history and physical was dictated by Dr. SESAY on 04/14/24. Please see this for details. Patient on titrating pitocin per protocol. Prefers unmedicated . Specific Issues/Plans partner: Rodrigo, Baby girl Emma Cho has a daughter, Wesley and son, Alcides with a previous partner. 1. Hx breast implants, bilateral lift and left breast reduction in 2020 implants under muscle per pt previously breastfed but this was before surgery 2. Hx anxiety felt was situational denies issues at [facility] 3. Hx ASCUS with negative HPV in 2020 no follow up since pap sent at [facility]: NIL, neg HPV 4. CARMEN X 2 at [facility] rt fundal: 3.2 x 1.1 x 0.7cm mid/low: 2.5 x 1.0 x 2.1 cm 5. Hx bulimia 2006 in high school, did inpatient treatment no problems since . Anemia 10.6 on 03/24, only on iron for 2 weeks 11.1 recheck Hgb at 37 weeks on 04/14/24 Rhogam: N/A: Rh postive (A+) H&P by LÁZARO on 04/14/2024 OB - Problem Based A/P Additional Plan (1) SROM (spontaneous rupture of membranes): Status: Acute Plan - Continue augmentation of labor PRN with Pitocin per protocol OB Exam Physical Exam Vital signs: Temp Pulse Resp BP 98.4 F 87 16 106/69 05/01/24 11:45 05/01/24 12:07 05/01/24 10:33 05/01/24 12:07 Narrative: Physical exam: General: No acute distress Psych: Alert and oriented x4, full affect HEENT: Normocephalic, atraumatic Lungs: Labored breathing through contractions Abdomen: Gravid. Strong contractions. In between contractions: soft, no tenderness, rebound, or guarding Skin: No lesions or rashes Lower extremities: No edema or erythema Pelvic exam: Defer until next cervical exam
--- NOTE | 2024-05-01 12:08 | W.PM.VAGDEL1 ---
Procedure Delivery date: 05/01/24 Procedure Done: Global Intrapartal Events: Labor Augmentation Delivery augmentation: pitocin Delivery monitor: external FHT Route of delivery: Laceration description: None Anesthesia type: None Disposition: floor Complications: None Narrative: The patient is a 33 year-old G3 P 2001 admitted on 05/01/24 at 39 and 5/7 weeks gestation for SROM at 0215. Clear fluid. GBS negative Labor Analgesia: None Pitocin: Yes for augmentation of labor Labor onset: 05/01/24 at 1010 Complete: 05/01/24 at 1111 Pushin05/01/24 at 1111 heart tones during second stage were Cat I. At 1118 a viable female infant delivered in vertex OA presentation over intact via spontaneous vaginal delivery. The infant's body was delivered in the usual manner without difficulty. was placed on maternal abdomen. Cord was clamped and cut after a 30-60 second delay. Nose and mouth were bulb suctioned. weight: pending. 8 at 1 minute and 9 at 5 minutes. Shoulder dystocia: No. Nuchal cord: No . Placenta delivered spontaneously and complete at 1122 with a 3 vessel cord. The cervix and vagina were inspected for lacerations and none were noted. Laceration(s): None. Complications: None. Estimated blood loss: 50 mL. Sponge and needles counts are correct. Mother and infant were stable at the time of this note. [place] Gender: Female presentation: vertex Placental Delivery Description: Spontaneous Cord Description: 3 Vessels
[2024-05-02 00:10] VITALS: BP 117/65; PULSE 63; RESP 16; TEMP 36.4; O2SAT 98
[2024-05-02] MEDS: IBUPROFEN 600 MG TABLET PO (04:36)
[2024-05-02 04:44] VITALS: BP 104/65; PULSE 76; RESP 16; TEMP 36.5; O2SAT 97
[2024-05-02 07:38] VITALS: BP 98/61; PULSE 77; RESP 16; TEMP 36.6; O2SAT 96
[2024-05-02 07:48] VITALS: TEMP 36.6
[2024-05-02] MEDS: ACETAMINOPHEN 500 MG TABLET 1000 MG PO (07:48)
[2024-05-02] MEDS: LANOLIN CREAM 1 APPLIC TOPICAL (07:49)
[2024-05-02] MEDS: DOCUSATE SODIUM 100 MG CAPSULE PO (09:00)
--- NOTE | 2024-05-02 09:41 | P.DS_ITS ---
DS: Providers Provider Date Seen: 05/02/24 Date of admission: 05/01/24 03:26 Primary care physician: Not a Local Provider Admitting Clinician: Nila Blake MD Attending Physician on discharge: Virginia LOPEZ Date of Discharge: 05/02/24 DS: Diagnosis Discharge Diagnosis (1) care and examination of lactating mother: Status: Acute Exam Narrative: Exam Narrative: GENERAL APPEARANCE:? normal affect, alert, no distress MOOD:? appropriate CHEST:? clear to auscultation HEART:? regular rate and rhythm ABDOMEN:? soft, non-tender the uterine fundus is At Umbilicus, midline and is appropriate for the stage of recovery. EXTREMITIES:? normal and mild edema Const: Vital Signs, click to edit/add: Vital Signs - 24 hr 05/01/24 10:33 05/01/24 10:33 05/01/24 11:22 Temperature 98.1 F Pulse Rate 85 90 Pulse Rate [Pulse Oximeter] Respiratory Rate 16 Blood Pressure 106/50 L 126/68 Blood Pressure [Ri ght Arm] P[facility] 11:37 05/01/24 11:37 05/01/24 11:52 Temperature 98.4 F Pulse Rate 88 87 Pulse Rate [Pulse Oximeter] Respiratory Rate 15 Blood Pressure 114/59 L 118/69 Blood Pressure [Ri ght Arm] Pulse Oximetry [facility] 05/01/24 11:52 05/01/24 12:07 05/01/24 12:07 Temperature Pulse Rate 87 Pulse Rate [Pulse Oximeter] Respiratory Rate 15 16 Blood Pressure 106/69 Blood Pressure [Ri ght Arm] Pulse Oximetry [facility] 05/01/24 12:22 05/01/24 12:22 05/01/24 12:37 Temperature 97.9 F Pulse Rate 83 74 Pulse Rate [Pulse Oximeter] Respiratory Rate 16 Blood Pressure 107/65 114/70 Blood Pressure [Ri ght Arm] Pulse Oximetry [facility] 05/01/24 12:37 05/01/24 12:52 05/01/24 12:52 Temperature 98.0 F Pulse Rate 81 Pulse Rate [Pulse Oximeter] Respiratory Rate 16 16 Blood Pressure 102/63 Blood Pressure [Ri ght Arm] Pulse Oximetry [facility] 05/01/24 13:07 05/01/24 13:07 05/01/24 13:28 Temperature Pulse Rate 74 67 Pulse Rate [Pulse Oximeter] Respiratory Rate 16 Blood Pressure 107/58 L 107/53 L Blood Pressure [Ri ght Arm] Pulse Oximetry Oxygen Delivery Me thod 05/01/24 13:28 05/01/24 16:25 05/01/24 20:05 Temperature 97.9 F 98.4 F Pulse Rate Pulse Rate [Pulse Oximeter] 71 83 Respiratory Rate 16 16 16 Blood Pressure Blood Pressure [Ri ght Arm] 103/63 104/66 Pulse Oximetry 98 99 Oxygen Delivery Me thod Room Air Room Air 05/02/24 00:10 05/02/24 04:44 05/02/24 07:38 Temperature 97.5 F L 97.7 F 97.8 F Pulse Rate Pulse Rate [Pulse Oximeter] 63 76 77 Respiratory Rate 16 16 16 Blood Pressure Blood Pressure [Ri ght Arm] 117/65 104/65 98/61 Pulse Oximetry 98 97 96 Oxygen Delivery Me thod Room Air Room Air Room Air 05/02/24 07:48 Temperature 97.8 F Pulse Rate Pulse Rate [Pulse Oximeter] Respiratory Rate Blood Pressure Blood Pressure [Ri ght Arm] Pulse Oximetry Oxygen Delivery Me thod OB - DS: Summary Hospital Course Hospital Course: Tammie is a 33 y.o. G 3 P 3003 who was admitted to [facility] for SROM.? She had a NVD that was uncomplicated. The patient feels well. Her sacrum is tender and plans to see chiro for that.? The pain is well controlled with current medications.? She has no new complaints.? She is breast feeding and reports things are going well. the patient has done well.? Vitals have been stable.? She has remained afebrile.? Has a good appetite, is tolerating a general diet.? She is voiding without difficulty.? She is passing gas and has not had a bowel movement.? She is ambulating and denies any dizziness.? Has small amount of rubra lochia. She is planning Mirena for prevention.? ?? Problems: none? Discharge home with baby.? Follow up in 2 weeks and 6 weeks.? , may see if needed? Hgb 11.7. ? Call for signs/symptoms of preeclampsia? For pain control of perineum, breast and pelvic pain, take 600 mg Ibuprofen every 6 hours as needed by mouth or 1000 mg acetaminophen (Tylenol) every 6 hours by mouth as needed. You can alternate these so you are taking something every 3 hours as needed. A heating pad can also be used for your abdomen or breasts.? Peripartum Data delivery method: Vaginal Laceration description: None Episiotomy description: None complications: none [place] Gender: Female Infant Discharge Plan: Home Status at Discharge Functional status at discharge: independent ambulation Time Spent with Patient Time attestation: Total time spent providing and/or coordinating discharge services: Time spent: Less than 30 minutes Discharge Plan Discharge Disposition: Home, Self-Care Date of Admission: 05/01/24 03:26 Attending Provider on Discharge: Geni Munoz Primary Care Provider: Provider,Not a Local Condition: Stable Anticipated Discharge Date/Time: 05/02/24 12:00 Discharge Medications: Discontinued with DHA-Folic Acid 400-32.5 mcg-mg tablet,chewable 1 tab PO DAILY bisacodyl 5 mg tablet,delayed release (DR/EC) 5 mg PO ONCE Tums 300 mg (750 mg) tablet,chewable 300 mg PO BID PRN Discharge Orders: Discharge Order (Routine); Ordered 05/02/24 Ordered By: Geni Munoz Patient Education: OB Care, OB Vaginal/Breast Feeding Additional Instructions: Discharge instructions were reviewed with the patient including signs and symptoms of infection and home going medications Nothing vaginally for 6 weeks: no tampons or intercourse Do not drive while taking narcotic pain medication(s) Off Work or School for 6 weeks Symptoms to report to doctor: * Bleeding that saturates more than one pad per hour * Passing clots larger than the size of a golf ball * Pain not relieved by prescribed medication * Fever above 100.4 degrees Fahrenheit * A foul vaginal odor * Difficulty in emotions, mood, and functions * Thoughts of hurting yourself and/or * Painful, reddened area in your breast * Any drainage, redness, or tenderness in your IV/epidural site * Severe headache that doesn't improve after taking medications * Changes in vision, including temporary loss of vision, blurred vision, and/or light sensitivity * Upper abdominal pain (usually under ribs on the right side) * Decrease in urination or painful, frequent urinating * Chest pain * Shortness of breath * Tenderness or pain with redness and/swelling in the calf(s) of your leg 2-week visit: discuss infant feeding concerns, review control options and screen for anxiety/depression. 6-week visit for an annual exam. consultation services are available to all mothers and babies for the first year after delivery.? To make an appointment, please call [phone]. Activity Level: Activity as Tolerated Discharge Diet: Regular Follow Up Appointments: [facility] [Provider Group] Nila Blake MD [Staff Physician] - Forms: [email or web address] Info Instructions
[2024-05-03 09:25] LABS: Rapid Plasma Reagin (RPR) Non Reactive (Non Reactive)
== END 2024-05-02 12:45 | disposition home or self-care (01) | DRG 807 ==
LOC: OB OUT 03:26 → OB 03:26
PROVIDERS: Admitting Provider Obstetrics & Gynecology; Visit Provider Obstetrics & Gynecology
DX: O42.02 Full-term premature rupture of membranes, onset of labor within 24 hours of rupture (principal); Z37.0 Single live birth; Z3A.39 39 weeks gestation of pregnancy; Z86.59 Personal history of other mental and behavioral disorders; Z87.410 Personal history of cervical dysplasia; O99.02 Anemia complicating childbirth; D50.9 Iron deficiency anemia, unspecified; Z98.890 Other specified postprocedural states; Z98.82 Breast implant status
CPT/HCPCS: 36415; 85018; 85025; 86592; 86850; 86900; 86901; G0463; A9270; J7120

== ENCOUNTER 2025-04-17 13:34 | Outpatient (CLI) | payer OTHER, SELFPAY ==
--- NOTE | 2025-04-17 14:00 | CRLHL7_ITS ---
For Patients: As a result of the Century Cures Act, medical imaging exams and procedure reports are released immediately into your electronic medical record. You may view this report before your referring provider. If you have questions, please contact your health care provider. OB ULTRASOUND FIRST TRIMESTER TRANSVAGINAL INDICATION: Bleeding in early . TECHNIQUE: Real time garcia scale imaging of the fetus was performed. Transvaginal imaging performed. LMP: 02/18/2025. JANEE by LMP: 11/25/2025. GA: 8 w, 2 d. Previous US: No. CRL: 2.0 cm. 8 w 4 d. JANEE: 11/23/2025. FHR: 163 BPM. Gestational sac: 3.8 cm. Appears within normal limits. Yolk sac: 3.2 mm. Appears within normal limits. Right ovary: Within normal limits. 6.5 x 3.4 x 5.2 cm. CL. Left ovary: Within normal limits. 3.2 x 1.1 x 2.3 cm. IMPRESSION: 1. Single living intrauterine measures 8 weeks 4 days and sonographic due date 11/23/2025. 2. Benign right ovarian cyst is present which measures 4.4 x 3.5 x 4.6 cm. An adjacent cyst is present measuring 2.5 x 1.6 x 1.7 cm. There is also a right ovarian corpus luteal cyst which measures 2.4 x 1.5 x 1.5 cm. 3. Right-sided subchorionic hemorrhage measures 3.2 x 1.4 x 1.1 cm. Primo Olivier M.D. Diagnostic Radiologist [email or web address] SP/Dictated by: Primo Olivier MD @ 04/17/2025 4:10:00 PM (Electronically Signed)
== END 2025-04-17 13:35 | disposition home or self-care (01) ==
LOC: US 13:35
PROVIDERS: Visit Provider Physician Assistant
DX: O20.9 Hemorrhage in early pregnancy, unspecified (principal); O34.81 Maternal care for other abnormalities of pelvic organs, first trimester; N83.201 Unspecified ovarian cyst, right side; Z3A.08 8 weeks gestation of pregnancy
CPT/HCPCS: 76817

== ENCOUNTER 2025-04-26 07:09 | Outpatient (CLI) | payer OTHER, SELFPAY ==
--- NOTE | 2025-04-26 07:15 | CRLHL7_ITS ---
For Patients: As a result of the Century Cures Act, medical imaging exams and procedure reports are released immediately into your electronic medical record. You may view this report before your referring provider. If you have questions, please contact your health care provider. OB ULTRASOUND INDICATION: Follow-up subchorionic hemorrhage. Dating and viability. TECHNIQUE: Real time grayscale imaging of the fetus was performed. Transabdominal and transvaginal. Transvaginal imaging performed to better demonstrate the endometrium and ovaries. LMP: 02/18/2025. JANEE by LMP: 11/25/2025. GA: 9 w, 4 d. Previous US: Yes 04/17/2025. JANEE by US: 11/23/2025. CRL: 3.1 cm. 10 w 0 d. JANEE: 11/22/2025. FHR: 164 BPM. Gestational sac: 4.8 cm. Appears within normal limits. Yolk sac: 4.1 mm. Appears within normal limits. Right ovary: 6.6 x 4.1 x 6.1 cm. CL. Left ovary: Within normal limits. 2.9 x 1.7 x 2.0 cm. IMPRESSION: 1. Single living intrauterine measures 10 weeks 0 days with sonographic due date 11/22/2025. 2. Right ovary cyst measures 2.5 x 2.0 x 1.4 cm. Additional right ovarian cyst measures 4.9 x 4.5 x 4.0 cm. 3. Corpus luteal cyst right ovary measures 2.4 x 1.4 x 1.2 cm. 4. Subchorionic hemorrhage lower uterine segment measures 3.3 x 3.3 x 2.0 cm. 5. Additional left-sided subchorionic hemorrhage measures 3.1 x 1.7 x 1.6 cm. 6. Probable normal development of the mid gut. Follow-up at 12 weeks recommended. Primo Olivier M.D. Diagnostic Radiologist [email or web address] STEFANIE/justin anderson/Dictated by: Primo Olivier MD @ 04/26/2025 9:39:00 AM (Electronically Signed)
== END 2025-04-26 07:10 | disposition home or self-care (01) ==
LOC: US 07:11
PROVIDERS: Visit Provider Physician Assistant
DX: O20.9 Hemorrhage in early pregnancy, unspecified (principal); O34.11 Maternal care for benign tumor of corpus uteri, first trimester; N83.11 Corpus luteum cyst of right ovary; Z3A.10 10 weeks gestation of pregnancy
CPT/HCPCS: 76801; 76817; 83021; 86592; 86703; 86704; 86706; 86762; 86787; 86803; 86850; 86900; 86901; 87086; 87340; 87491; 87591

== ENCOUNTER 2025-05-25 07:15 | Outpatient (CLI) | payer OTHER, SELFPAY ==
--- NOTE | 2025-05-25 07:15 | CRLHL7_ITS ---
For Patients: As a result of the Century Cures Act, medical imaging exams and procedure reports are released immediately into your electronic medical record. You may view this report before your referring provider. If you have questions, please contact your health care provider. OB ULTRASOUND INDICATION: Follow-up for mid herniation. TECHNIQUE: Real time grayscale imaging of the fetus was performed. Transvaginal. Transvaginal imaging performed to better demonstrate the endometrium and ovaries. JANEE by LMP: 11/25/2025. GA: 14 w, 2 d. Previous US: Yes 04/17/2026 and 04/26/2026. JANEE by US: 11/23/2025. GA: 8 w, 4 d. JANEE by US: 11/22/2025. GA: 10 w, 0 d. CRL: 8.4 cm. 14 w 2 d. JANEE: 11/21/2025. FHR: 154 BPM. Right ovary: 3.8 x 2.8 x 3.2 cm. Left ovary: 2.3 x 0.9 x 1.0 cm. IMPRESSION: 1. Normal-appearing abdominal wall without gut herniation. 2. Sonographic gestational age 14 weeks 2 days and sonographic due date 11/21/2025. 3. Simple right ovarian cyst measures 2.3 x 1.8 x 2.6 cm. 4. Subchorionic hemorrhage measures 2.4 x 1.2 x 1.4 cm. Primo Olivier M.D. Diagnostic Radiologist [email or web address] STEFANIE/justin anderson/Dictated by: Primo Olivier MD @ 05/27/2025 10:39:00 PM (Electronically Signed)
== END 2025-05-25 07:16 | disposition home or self-care (01) ==
LOC: US 07:15
PROVIDERS: Visit Provider Physician Assistant
DX: O09.522 Supervision of elderly multigravida, second trimester (principal); Z3A.14 14 weeks gestation of pregnancy
CPT/HCPCS: 76816

== ENCOUNTER 2025-07-11 07:07 | Outpatient (CLI) | payer OTHER, SELFPAY | END 2025-07-11 07:08 | disposition home or self-care (01) | LOC: US 07:07 | PROVIDERS: Visit Provider Obstetrics & Gynecology | DX: O09.512 Supervision of elderly primigravida, second trimester (principal); Z3A.20 20 weeks gestation of pregnancy | CPT/HCPCS: 76811 ==